=== PATIENT | female | born 1950 | race Caucasian/White ===

== ENCOUNTER 2017-03-23 08:30 | Outpatient (CLI) | payer MEDICARE ==
--- NOTE | 2017-03-23 12:14 | MRI ---
MRI OF THE BRAIN WITHOUT AND WITH CONTRAST: Comparison: 12-02-16, 01-06-16, 02-18-15, 01-16-15 History: Lung cancer with brain metastases, post-surgical resection. Technique: Multiplanar, multisequence MRI images were obtained in the brain without and with IV cont rast. FINDINGS: There are diffuse scattered hypodensities in the subcortical and periventricular white matter, likel y secondary to small vessel ischemic disease. There is a stable cavity in the left parietal lobe whe re a prior mass was resected. This is unchanged compared to the prior exam with a small amount of en hancement along the periphery representing vessels. No new area of enhancement are seen within the b rain. There is a stable large Virchow-Yossi space in the left basal ganglia. The expected flow voids are present. The corpus callosum, pituitary and craniocervical junction are unremarkable. The calvarium shows post-surgical change in the left parietal region but is otherwise unremarkable. There is mild mucosal thickening in the left maxillary sinus. IMPRESSION: 1. Stable post-surgical change in the left parietal lobe without evidence of recurrent or residual d isease at this time. POS: [facility]FFANIE
--- NOTE | 2017-03-23 12:56 | CT ---
CT CHEST WITH IV CONTRAST CT ABDOMEN WITH IV CONTRAST: Date: 03/23/17 HISTORY: Lung cancer with metastatic disease to the brain. The patient is status post surgery and chemo/radia tion. Exam requested for restaging. COMPARISON: 12/02/16. FINDINGS: Postop changes in the left hemithorax are redemonstrated. The left basilar scarring extending to the 1.2 cm subpleural nodule in the left lateral lung base is stable. No new lung nodules or masses are identified. No mediastinal or hilar lymphadenopathy is seen. No pleural or pericardial effusions ar e identified. The left breast nodule and prominent bilateral axillary lymph nodes are stable. Multiple cysts in the liver are also stable. The spleen, pancreas, right adrenal gland, and both kid neys are unremarkable. The patient is status post left adrenalectomy. No free air, free fluid, or lymphadenopathy seen in the abdomen. There are degenerative changes in t he spine. No osteolytic or osteoblastic lesions are identified. IMPRESSION: Stable exam since 12/02/16. POS: TIFFANIE
[2017-03-23] MEDS ORDERED: Iopamidol 370 76% 100 ML VIAL ONE (16:00)
[2017-03-23] MEDS ORDERED: Gadobenate Dimeglumine 529 MG/1 ML (20ML VIAL) ONE (16:03)
== END 2017-03-23 08:31 | disposition home or self-care (01) ==
LOC: CT 08:30
PROVIDERS: ATTEND Internal Medicine Hematology & Oncology
DX: C34.90 Malignant neoplasm of unspecified part of unspecified bronchus or lung (principal); C79.31 Secondary malignant neoplasm of brain; Z98.890 Other specified postprocedural states
CPT/HCPCS: 70553; 71260; 74160; A9579

== ENCOUNTER 2017-04-08 13:19 | Outpatient (CLI) | payer MEDICARE ==
--- NOTE | 2017-04-08 14:41 | MMO ---
LEFT BREAST DIAGNOSTIC MAMMOGRAM: Date: 04/08/17 HISTORY: Abnormality seen on CT. COMPARISON: Previous mammograms from 08/21/16, 06/11/15, 05/08/14, and 03/26/09. TECHNIQUE: Digital screening mammography is performed. Images are evaluated using computer-aided detection. FINDINGS: Left breast diagnostic mammogram performed. Images demonstrate stable mammographic appearance. Area of well circumscribed density in the left breast 3 o'clock position is stable. It has been present o n numerous previous mammograms and is not significantly changed. No other newly developed masses or lesions seen. IMPRESSION: BIRADS 2: Benign Finding(s) No further workup is indicated. POS: TIFFANIE
== END 2017-04-08 13:20 | disposition home or self-care (01) ==
LOC: MAMMO 13:19
PROVIDERS: ATTEND Internal Medicine Hematology & Oncology
DX: N63.20 Unspecified lump in the left breast, unspecified quadrant (principal)
CPT/HCPCS: G0206-LT

== ENCOUNTER 2017-07-07 09:05 | Outpatient (CLI) | payer MEDICARE ==
--- NOTE | 2017-07-07 12:08 | CT ---
CT CHEST WITH IV CONTRAST CT ABDOMEN WITH IV CONTRAST: HISTORY: Lung cancer with metastatic disease. Restaging. COMPARISON: 03/23/17 and 12/02/16. FINDINGS: Parenchymal scarring at the left lateral lung base is again demonstrated. The peripheral nodule at t he left lateral lung base, measuring 1.2 cm AP diameter at its base, is stable compared to the previo us exam. No new parenchymal nodules are apparent. There is calcification of the arterial structures . Enlarged bilateral axillary lymph nodes and a left breast nodule are stable. No pleural fluid. C ysts within the liver are unchanged. There are degenerative changes of the lumbar spine. The left a drenal gland is surgically absent. The pelvis was not imaged. IMPRESSION: 1. Stable CT appearance of the parenchymal scarring and nodule at the left lateral lung base. 2. Stable CT appearance of the left breast nodule and bilateral axillary adenopathy. 3. Atherosclerosis. POS: TIFFANIE
--- NOTE | 2017-07-07 12:47 | MRI ---
BRAIN MRI WITH AND WITHOUT CONTRAST: 07/07/2017 HISTORY: Lung cancer with intracranial metastatic disease. COMPARISON: 03/23/2017, 12/02/2016, 09/01/2016 TECHNIQUE: Multiplanar, multisequence MR imaging of the brain is obtained with and without contrast. FINDINGS: There is evidence of bilateral prior craniotomy. The diffusion-weighted imaging demonstrates no evidence for acute infarction. Axial gradient echo imaging is stable, demonstrating no evidence for intracranial hemorrhage. There is a post surgical cavity in the left parietal region, subjacent to the left craniotomy changes . The postoperative cavity in this region measures 1.6 cm in transverse dimension, stable. It is pr imarily flare hypointense with small, nodular areas of FLAIR hyperintensity and pre-contrast T1 hyper intensity along its lateral and superior margins. Signal characteristics of this are unchanged. On post contrast imaging, there is no definite enhancement at the postoperative site. Abnormal enhancement involving the brainstem or posterior fossa. There is a small postoperative cavity subjacent to the craniotomy changes on the right, which follow CSF signal intensity on all pulsed sequences, demonstrating no abnormal enhancement, unchanged when c ompared to prior imaging. No evidence for new/active intracranial metastatic disease. The imaged paranasal sinuses/mastoid air cells demonstrate no acute findings. There is severe degene rative change with associated fluid involving the left temporomandibular joint, stable. Arterial flow voids at the axial level of the skull base appear grossly unremarkable. There is exten sive periventricular deep and subcortical white matter T2/FLAIR hyperintensity, which may be related to small vessel disease and/or prior radiation therapy. IMPRESSION: Postoperative changes, as detailed above. No MR evidence of active intracranial metastatic disease. POS: TIFFANIE
[2017-07-07] MEDS ORDERED: Iopamidol 370 76% 100 ML VIAL ONE (15:41)
[2017-07-07] MEDS ORDERED: Gadobenate Dimeglumine 529 MG/1 ML (20ML VIAL) ONE (15:49)
== END 2017-07-07 09:06 | disposition home or self-care (01) ==
LOC: CT 09:05
PROVIDERS: ATTEND Internal Medicine Hematology & Oncology
DX: C34.32 Malignant neoplasm of lower lobe, left bronchus or lung (principal); C79.31 Secondary malignant neoplasm of brain; D70.9 Neutropenia, unspecified; T82.818A Embolism due to vascular prosthetic devices, implants and grafts, initial encounter; R11.2 Nausea with vomiting, unspecified; I70.90 Unspecified atherosclerosis
CPT/HCPCS: 70553; 71260; 74160; A9579

== ENCOUNTER 2017-10-20 08:42 | Outpatient (CLI) | payer MEDICARE ==
--- NOTE | 2017-10-20 11:29 | CT ---
CT CHEST WITH CONTRAST CT ABDOMEN WITH CONTRAST: Date: 10/20/17 HISTORY: C34.32, lung cancer. C79.32, brain mets. COMPARISON: CT chest and abdomen with contrast dated 04/06/18. FINDINGS: The bilateral axillary adenopathy is similar. The previously noted 2.3 cm long axis lymph node left a xilla is unchanged. Right axillary 17.0 mm short axis lymph node is unchanged. Small retropectoral ly mph nodes are also present, completely unchanged. No new axillary adenopathy. There are two separate nodules within the left breast. The left breast anterior nodule measures 13.0 mm in long axis, completely unchanged. Smaller deep nodule left breast measures 10.0 mm in long axis, also completely unchanged. No mediastinal adenopathy. There is mild thymic hyperplasia anterior mediastinum. Over the past year, the left basilar nodule has slowly decreased in size and continues decreased in s ize on today's examination. There is associated round atelectasis and peripheral pleural scarring. On today's examination, this measures approximately 1.0 cm in anterior posterior dimension, previously approximately 12.0 mm. Small intraparenchymal cyst right lung base. No new suspicious pulmonary nodul es. No pneumothorax. No effusion. Small posterior diaphragmatic hernia containing fat. The aorta has mild atherosclerotic calcifications. No dilatation of the pulmonary artery. Small intraperitoneal and periaortic lymph nodes, unchanged to slightly decreased in size. These are not pathologically enlarged. Small, fat-containing ventral hernia. Hepatic hypodensities are similar. No suspicious hyper or hypoenhancing hepatic mass. Gallbladder is unremarkable. Spleen is unchanged. No hydronephrosis. Moderate atherosclerotic calcifications of the aorta. No free intraperitoneal gas or fluid. Multiple facet arthrosis lower lumbar spine. No suspicious lytic or blastic lesions of the skeleton. IMPRESSION: 1. Completely unchanged examination of the bilateral axillary and right retropectoral lymph nodes, a s well as the breast nodules. 2. The left lateral lobe peripheral nodular density continues to be slightly decreased in size, most suggestive of scar. 3. No new suspicious mass, nodule, or osseous abnormality. No evidence for disease progression. POS: [facility]
--- NOTE | 2017-10-20 12:03 | MRI ---
MRI BRAIN WITH AND WITHOUT CONTRAST: Date: 10/20/17 Multiplanar, multisequential imaging of brain obtained. Postcontrast images were obtained with admini stration of 7 mL MultiHance IV. Half-dose MultiHance was administered due to patient's GFR which was recorded at 41. INDICATION: Malignant neoplasm of bronchus/lung unspecified. Secondary malignancy of brain. COMPARISON: MRI brain dated 07/07/17. FINDINGS: Ventricles remain normal size and position. Diffuse white matter hyperintensity on FLAIR sequence con sistent with chronic ischemic change or post radiation change. Postoperative defect posterior left parietal lobe and right temporal lobe region with surrounding gli osis and small operative cavity which was described previously. The defect in the left parietal lobe has nodular T1 hyperintensity on precontrast imaging which is stable from prior exam. The surrounding FLAIR signal is stable. No significant enhancement within the operative bed and no significant headley e from the prior study. No enhancement of the small postoperative cavity at the right temporal region . No other abnormal enhancement identified in the brain. Paranasal sinuses and mastoids appear clear. IMPRESSION: MRI findings are stable when compared to 07/07/17. No evidence of recurrent neoplasm. POS: TIFFANIE
[2017-10-20] MEDS ORDERED: Iopamidol 370 76% 100 ML VIAL ONE (15:00)
[2017-10-20] MEDS ORDERED: Gadobenate Dimeglumine 529 MG/1 ML (20ML VIAL) ONE (15:10)
== END 2017-10-20 08:43 | disposition home or self-care (01) ==
LOC: CT 08:42
PROVIDERS: ATTEND Internal Medicine Hematology & Oncology
DX: C34.91 Malignant neoplasm of unspecified part of right bronchus or lung (principal); C79.31 Secondary malignant neoplasm of brain
CPT/HCPCS: 70553; 71260; 74160; 82565; A9579

== ENCOUNTER 2018-03-08 10:32 | Outpatient (CLI) | payer MEDICARE ==
[~2018-03-08 10:32] MED LIST: Gadobenate Dimeglumine 529 MG/1 ML (20ML VIAL) ONE; Iopamidol 370 76% 100 ML VIAL ONE
== END 2018-03-08 10:33 | disposition home or self-care (01) ==
LOC: BICCT 10:32
PROVIDERS: ATTEND Internal Medicine Hematology & Oncology
DX: C79.31 Secondary malignant neoplasm of brain (principal); C34.90 Malignant neoplasm of unspecified part of unspecified bronchus or lung; T82.818A Embolism due to vascular prosthetic devices, implants and grafts, initial encounter; R11.2 Nausea with vomiting, unspecified; D70.9 Neutropenia, unspecified; Z98.890 Other specified postprocedural states
CPT/HCPCS: 70553; 71260; 74160

== ENCOUNTER 2018-04-28 12:23 | Outpatient (CLI) | payer MEDICARE | END 2018-04-28 12:24 | disposition home or self-care (01) | LOC: BICMAMMO 12:23 | PROVIDERS: ATTEND Internal Medicine Hematology & Oncology | DX: Z12.31 Encounter for screening mammogram for malignant neoplasm of breast (principal); Z80.3 Family history of malignant neoplasm of breast; Z85.118 Personal history of other malignant neoplasm of bronchus and lung | CPT/HCPCS: 77063; 77067 ==

== ENCOUNTER 2018-05-22 11:24 | Emergency (ER) | payer MEDICARE ==
--- NOTE | 2018-05-22 12:05 | RAD ---
UPRIGHT CHEST 1 VIEW: HISTORY: A 68-year-old female with a history of chest pain. COMPARISON: Chest CT presales consultant film dated 10/20/2017. Postop changes are noted in the left chest. Heart size is within normal limits. No confluent pneumo salvador, overt edema, or pleural effusion. IMPRESSION: No acute intrathoracic disease. Stable findings in the left chest. POS: [facility]
[2018-05-22 12:18] LABS: Bilirubin Negative (Negative); Blood, Urine Moderate (Negative); Clarity CLOUDY (Clear); Glucose, Urine (Dipstick) Negative (Negative); Leukocyte Large (Negative); Nitrite Positive (Negative); Protein, Urine (Dipstick) Trace mg/dL (Neg-Trace); Specific Gravity, Urine 1.016 (1.002-1.036); pH, Urine 5.5 (5.0-9.0)
[2018-05-22 12:21] LABS: Bacteria/HPF 4+ HPF (None Seen); Squamous Epithelial 0-3 HPF (0-3)
[2018-05-22 12:24] LABS: Hyaline Casts/LPF 0-3 HYALINE CAST LPF (0-3 Hyaline); Manual Microscopic Reviewed? No Path Casts Seen; Pathc Cast-AUWi Flag 3.34 (0-2.49)
[2018-05-22 12:46] LABS: #Basophils 0.1 thou/uL (0.0-0.2); #Lymphocytes 3.8 thou/uL (1.20-3.40); #Monocytes 1.8 thou/uL (0.11-0.59); #Neutrophils 11.6 thou/uL (1.40-6.50); %Basophils 0.7 % (0.0-1.0); %Eosinophils 0.1 % (0.0-10.0); %Lymphocytes 21.9 % (21.0-51.0); %Monocytes 10.4 % (0.0-10.0); %Neutrophils 66.9 % (42.0-75.0); Hemoglobin 12.2 g/dL (12.0-16.0); Mean Corpuscular HGB CONC 33.9 g/dL (32.0-36.0); Mean Corpuscular Hemoglobin 31.7 pg (27.0-31.0); Mean Corpuscular Volume 93.5 fL (78.0-98.0); Mean Platelet Volume 6.5 fL (7.4-10.4); Platelet Count 269 thou/uL (130-400); RBC Distribution Width 11.4 % (11.5-14.5); Red Blood Cell (RBC) Count 3.87 mill/uL (4.20-5.40); White Blood Cell (WBC) Count 17.3 thou/uL (4.8-10.8)
[2018-05-22] MEDS ORDERED: cefTRIAXone\\ROCEPHIN 1 GM VIAL ONE (12:51)
[2018-05-22 13:08] LABS: ALT (SGPT) 16 U/L (8-55); AST (SGOT) 12 U/L (5-34); Albumin 4.2 g/dL (3.4-4.8); Alkaline Phosphatase 112 U/L (40-150); Anion Gap 15 mmol/L (10-20); BUN (Urea Nitrogen) 16 mg/dL (9.8-20.1); Calc. Creatinine Clearance 0 mL/min (70-130); Calcium 9.2 mg/dL (7.8-10.44); Carbon Dioxide 24 mmol/L (23-31); Chloride 101 mmol/L (98-107); Estimated GFR-MDRD 43; Globulin 2.6 g/dL (2.4-3.5); Glucose 111 mg/dL (80-115); Potassium 3.8 mmol/L (3.5-5.1); Protein, Total 6.8 g/dL (6.0-8.3); Sodium 136 mmol/L (136-145)
[2018-05-22 13:13] LABS: CKMB 1.6 ng/mL (0-6.6); Troponin I Less than 0.010 ng/mL (< 0.028)
== END 2018-05-22 14:04 | disposition home or self-care (01) ==
LOC: ERS 11:24
DX: S20.212A Contusion of left front wall of thorax, initial encounter (principal); N39.0 Urinary tract infection, site not specified; F41.9 Anxiety disorder, unspecified; F32.9 Major depressive disorder, single episode, unspecified; Z79.899 Other long term (current) drug therapy; W19.XXXA Unspecified fall, initial encounter
CPT/HCPCS: 36415; 51701; 71045; 80053; 81003; 81015; 82553; 84484; 85025; 87077; 87086; 87186; 93005; 96365; A4353; J0696

== ENCOUNTER 2018-07-27 09:00 | Outpatient (CLI) | payer MEDICARE ==
--- NOTE | 2018-07-27 11:20 | CT ---
CT CHEST AND ABDOMEN PERFORMED WITH INTRAVENOUS CONTRAST ENHANCEMENT: HISTORY: The patient has a history of lung cancer with left upper lobe lobectomy, left adrenal gland removal, and a history of brain metastatic disease. COMPARISON: 03/08/2018 and 10/20/2017 FINDINGS: CHEST: There is some parenchymal scarring along the right major fissure. This is stable. Postoperative lobectomy changes of the left upper lobe are seen. Parenchymal scarring is again noted within the left lung base. There is some linear parenchymal change, which has two areas of nodulari ty associated with it. One is more of a pleural-based area, and it is stable in appearance. The sec ond area is a small nodular density, which is just immediately central to this area. It is slightly increased in size as compared to the prior examination, measuring 5 mm on the prior study, now measur ing 7 mm. It appears more prominent than both the previous exams. There has been an increase in the size of some of the adenopathy. In the right hilar region, an azyg os node has increased in size. It now measures 2 cm, as compared to the previous examination, when i t measured approximately 13 mm. A second node, located in the right infrahilar region, now measures 18 mm in size, as compared to the previous examination, when it measured 11 mm. There is also some i ncrease in size of some left hilar nodes. One node, on axial image 27, measures 12 mm, as compared t o 10 mm on the prior study. A node located on axial image 28 measures 9 mm on the current study, as compared to 8 mm. There are pretracheal lymph nodes present. I do not see that these have definitiv reyna changed in size. One area that is slightly equivocal to some of the subcarinal nodes may be subt ly increased. I obtained measurements of 6 mm, as compared to 5 mm on the prior examination. The bi lateral axillary lymphadenopathy appears stable. ABDOMEN: Hypodensities within the liver appear stable. The spleen, pancreas, and gallbladder region s all appear unremarkable. The right adrenal gland is normal in appearance. The left adrenal gland is not identified. The righ t and left kidneys are normal in size. There are periaortic and aortocaval nodes again identified. These appear stable. No significant mesenteric adenopathy. Fat-containing hernias are seen along the anterior abdominal wall and, just below the level of the um bilicus, is a hernia extending slightly to the right of midline, which has herniation of a small sylvie l loop, but no obstruction. This is only partially visualized on this study. Review of osseous structures shows no signs of any lytic or blastic bony changes. IMPRESSION: 1. Postoperative left upper lobe lobectomy change. There are some linear changes in the left base t hat have some nodular components associated with the linear density. The pleural-based area of nodul arity is felt to be stable in size. There has been a very subtle increase in size of a second area o f nodularity, which is just central to this, still along this area of linear scarring, increasing in size from approximately 5 mm to 7 mm. 2. Interval increase in bilateral hilar lymphadenopathy, as discussed above. 3. Stable axillary adenopathy. 4. Stable retropectoral nodes also seen. POS: [facility]
--- NOTE | 2018-07-27 12:04 | MRI ---
MRI BRAIN WITH AND WITHOUT CONTRAST: 07/27/2018 HISTORY: A 68-year-old female with lung cancer, metastatic to the brain, followup, C79.31 and C34.32. COMPARISON: 03/08/2018 TECHNIQUE: Multiple sequences obtained in axial, sagittal, and coronal planes; pre and post IV injection of gado linium-based contrast agent: Half-dose, 6 mL MultiHance (low GFR of 45). FINDINGS: Bilateral occipital parietal craniotomy changes. Focal region of small brain parenchymal defect with encephalomalacia and gliosis in the left posterior parietooccipital region again noted. Similar but smaller such region in the right posterolateral temporal cortex, near junction with occipital lobe. Diffuse severe ischemic demyelination (chronic ischemic white matter changes due to microvascular ath erosclerosis) throughout the periventricular, deep, and subcortical white matter. Diffuse parenchyma l volume loss. No obstructive hydrocephalus. No mass effect, midline shift, or extraaxial fluid col lection. No restricted diffusion to indicate any acute infarction. No evidence of new metastatic le sions. Regarding the surgical defect in the left parietooccipital region, there is nodular intrinsic T1 hype rintensity along a linear array, at the lateral aspect of the lesion, which should not be mistaken fo r contrast enhancement. This appearance is unchanged. There is no interval change overall. IMPRESSION: 1. No evidence of new or recurrent intracranial metastatic disease. 2. Bilateral small posterior cerebral post surgical defects. 3. Severe chronic white matter changes, which may be due to accelerated chronic ischemic small vesse l disease due to external beam radiation. 4. No interval change overall. ABBE Kelly POS: TIFFANIE
[2018-07-27] MEDS ORDERED: ISOVUE-370 76%-LOCM 1 ML ONE (13:30)
[2018-07-27] MEDS ORDERED: Gadobenate Dimeglumine 529 MG/1 ML (20ML VIAL) ONE (13:38)
== END 2018-07-27 09:01 | disposition home or self-care (01) ==
LOC: BICMRI 09:00
PROVIDERS: ATTEND Internal Medicine Hematology & Oncology
DX: C34.90 Malignant neoplasm of unspecified part of unspecified bronchus or lung (principal); C79.31 Secondary malignant neoplasm of brain; R59.0 Localized enlarged lymph nodes; I67.82 Cerebral ischemia; N39.0 Urinary tract infection, site not specified; Z90.2 Acquired absence of lung [part of]
CPT/HCPCS: 70553; 71260; 74160; 81001; 82565; 87086; A9577; Q9966

== ENCOUNTER 2018-09-21 10:30 | Outpatient (CLI) | payer MEDICARE ==
--- NOTE | 2018-09-21 12:57 | CT ---
FCT of the thorax with IV contrast INDICATION: History of lung cancer with metastatic disease Contrast: 60 cc of Isovue [address] the chest and abdomen dated July 27, 2018 FINDINGS: The postsurgical change of the left upper lobectomy is stable. The regions of peripheral interstitial fibrosis involving the lower lobes is stable. The areas of subpleural nodularity involving the left lower lobe is stable. The pulmonary nodule prev iously measuring 7 mm now measures 6 mm on image 37 series 2. The lymphadenopathy of the mediastinum, hilar, axillary and left retropectoral region is stable. The left breast lymph node is stable. Index node within the right axilla measures 1.5 cm. The largest lym ph node within the left hilar region measures 1.1 cm. The largest lymph node within the right hilar r egion measures 1 cm. The largest lymph node within the left axillary region measures 1.1 cm. Numerous hypodensities of the liver are stable. The left adrenal gland is surgically absent. Right adrenal glands normal appearing. There are healed anterolateral right fourth and fifth rib frac tures. No suspicious osteolytic or osteoblastic lesion is evident. There are healed left fourth throu gh sixth rib fractures. IMPRESSION: Stable examination of the chest. The small subcentimeter pulmonary nodules in the left lo wer lobe are largely stable. The largest pulmonary nodule present measuring 7 mm now measures 6.0 mm. The lymphadenopathy of the mediastinal, hilar, axillary, left retropectoral and left lateral breast are stable. Transcribed Date/Time: 09/21/2018 12:57 PM
== END 2018-09-21 10:31 | disposition home or self-care (01) ==
LOC: BICCT 10:30
PROVIDERS: ATTEND Internal Medicine Hematology & Oncology
DX: C34.90 Malignant neoplasm of unspecified part of unspecified bronchus or lung (principal); C79.31 Secondary malignant neoplasm of brain; R91.8 Other nonspecific abnormal finding of lung field; R59.0 Localized enlarged lymph nodes
CPT/HCPCS: 71260; 82565

== ENCOUNTER 2018-11-16 09:35 | Outpatient (CLI) | payer MEDICARE ==
--- NOTE | 2018-11-16 13:54 | MRI ---
MRI BRAIN WITH AND WITHOUT CONTRAST: 11/16/2018 HISTORY: A 68-year-old female with lung cancer, metastatic to the brain, followup, C79.31 and C34.32. COMPARISON: 07/17/2018 FINDINGS: Bilateral occipital parietal craniotomy changes. Focal region of small brain parenchymal defect with encephalomalacia and gliosis in the left posterior parietooccipital region again noted. Similar but smaller such region in the right posterolateral temporal cortex, near junction with occipital lobe. D iffuse severe ischemic demyelination (chronic ischemic white matter changes due to microvascular atherosclerosis) throughout the periventricular, deep, and subcortical white matter. Diffuse parenchy mal volume loss. No obstructive hydrocephalus. No mass effect, midline shift, or extraaxial fluid collection. No restricted diffusion to indicate any acute infarction. No evidence of new metastatic l esions. Regarding the surgical defect in the left parietooccipital region, there is nodular intrinsic T1 hyperintensity along a linear array, at the lateral aspect of the lesion, which should n ot be mistaken for contrast enhancement. This appearance is unchanged. There is no interval change overall. IMPRESSION: 1. No evidence of new or recurrent intracranial metastatic disease. 2. Bilateral small posterior cerebral post surgical defects. 3. Severe chronic white matter changes, which may be due to accelerated chronic ischemic small vessel disease due to external beam radiation. 4. No interval change overall.
== END 2018-11-16 09:36 | disposition home or self-care (01) ==
LOC: BICMRI 09:35
PROVIDERS: ATTEND Internal Medicine Hematology & Oncology
DX: C34.32 Malignant neoplasm of lower lobe, left bronchus or lung (principal); C79.31 Secondary malignant neoplasm of brain; R11.2 Nausea with vomiting, unspecified; D70.9 Neutropenia, unspecified; T82.818A Embolism due to vascular prosthetic devices, implants and grafts, initial encounter; Z98.890 Other specified postprocedural states; G45.9 Transient cerebral ischemic attack, unspecified
CPT/HCPCS: 70553; 82565

== ENCOUNTER 2019-01-11 08:59 | Outpatient (CLI) | payer MEDICARE ==
--- NOTE | 2019-01-11 10:38 | CT ---
CT the chest and abdomen with IV contrast INDICATION: History of lung cancer COMPARISON: CT of the chest dated 09/21/2018 July 27, 2018 FINDINGS: The subpleural pulmonary nodularity underlying the lateral aspect of the pleural surface of the left lower lobe is largely stable. One small pulmonary nodule has demonstrated mild interval growth. Previously this nodule on image 29 series 3 measured 4.5 mm now measures 5 mm. Additional pulmonary n odule left lower lobe previously measuring 6 mm is now measures 6.4 mm on image 36 of series 3. These subpleural scarring is stable. Scattered emphysema several stable. Postsurgical change of a lef t upper lobectomy is stable. The hilar lymphadenopathy is stable. The largest lymph node within the left hilar region measures 10 x 8 mm where previously it measured 11 x 9 mm on image 27 of series 2 on today's exam. Largest lymph node within the right hilar region measures 2 x 1 cm which is stable to the comparison examinat ion. There has been interval enlargement of the axillary lymph nodes and subpectoral lymph nodes on the right. One of the largest on the right axilla measures 17 mm where previously measured 15 mm. Thi s is seen on image 15 of series 2. The largest within the left axilla now measures 15 mm where previously measured 12 mm. Small hypodensities within the liver are stable. Left adrenal gland is surgically absent. Pancreas, r ight adrenal gland, kidneys and spleen appear within normal limits. The unopacified large and small bowel appear within normal limits. Small infraumbilical abdominal hernia containing unobstructed loop s of small bowel is stable. There is diffuse osteopenia. No suspicious osteolytic or osteoblastic lesion is identified. IMPRESSION: 1. Findings concerning for worsening metastatic disease. Slight interval enlargement of the small pul monary nodules in left lower lobe with bilateral enlargement of the axillary and prepectoral lymph nodes. Hilar lymph nodes and mediastinal lymph nodes are stable in size. Follow-up examination in 6-8 weeks may be helpful to evaluate stability versus progression. 2. Other chronic findings as above.
[2019-01-11] MEDS ORDERED: ISOVUE-370 76%-LOCM 1 ML ONE (13:42)
== END 2019-01-11 09:00 | disposition home or self-care (01) ==
LOC: BICCT 08:59
PROVIDERS: ATTEND Internal Medicine Hematology & Oncology
DX: C34.90 Malignant neoplasm of unspecified part of unspecified bronchus or lung (principal); J43.9 Emphysema, unspecified; R91.8 Other nonspecific abnormal finding of lung field; R59.0 Localized enlarged lymph nodes; K76.89 Other specified diseases of liver
CPT/HCPCS: 71260; 74160; 82565; Q9966

== ENCOUNTER 2019-01-17 08:52 | Outpatient (CLI) | payer MEDICARE ==
--- NOTE | 2019-01-17 11:37 | PET ---
EXAM: PET/CT HISTORY: Lung cancer TECHNIQUE: PET scanning with CT attenuation correction was performed from the base of the brain to the proximal thighs following the intravenous administration of 10.9. millicuries [id number]. COMPARISON: CT of the thorax with contrast dated January 11, 2019 and a PET/CT dated March 17, 2016 FINDINGS: Biodistribution:The biodistribution for the exam appears acceptable. Head and neck: There is appropriate background activity within the brain. In There is some nonhypermetabolic shotty appearing lymph nodes seen within the submandibular and submen kevin regions bilaterally. Peak SUV uptake associated with the submandibular lymph node on the right measures 1.87 with a mean value 1.64. There is also additional nonpathologically enlarged nonhypermet abolic lymph nodes seen near the carotid jugular space as well as within the posterior cervical region. Thorax: No hypermetabolic pulmonary lesion, pleural effusion or lymphadenopathy is present.The previ ously seen enlarging bilateral axillary and prepectoral lymph nodes demonstrate no hypermetabolic activity. The peak SUV uptake of one of the nodes within the right upper axillary region was 1.23 wit h a mean value of 0.83. No hypermetabolic hilar lymphadenopathy is evident. The left lower lobe pulmonary nodules are below PET resolution threshold. There is a 1 cm nodule within the outer aspect of the left breast which is stable to a CT dated September 21, 2018 without associated hypermetabolic uptake. Abdomen and pelvis: There is expected background activity within the GI and systems. No hypermetab olic mass, lymphadenopathy or ascites is present. Osseous structures and skin: No hypermetabolic skin or osseous lesion is identified. IMPRESSION: Indeterminate PET/CT 1. The enlarging bilateral axillary prepectoral lymph nodes demonstrate no associated hypermetabolic uptake. In light of the patient's history these do remain suspicious for worsening metastatic disease. Short-term CT follow-up is recommended to document stability or progression of disease. Ther e is a stable outer left breast nodule measuring 1 cm without associated hypermetabolic uptake. This may reflect a stably enlarged intermammillary left breast lymph node. 2. The subcentimeter pulmonary nodules in the left lower lobe demonstrate no hypermetabolic uptake; h owever, they are below PET resolution threshold. CT follow-up is recommended. 3. Mildly prominent but nonpathologically enlarged lymph nodes of the neck without associated hyperme tabolic uptake. CT soft tissue neck follow-up is recommended to document stability. These are new from the prior PET/CT in 2016..
== END 2019-01-17 08:53 | disposition home or self-care (01) ==
LOC: PET 08:52
PROVIDERS: ATTEND Internal Medicine Hematology & Oncology
DX: C34.90 Malignant neoplasm of unspecified part of unspecified bronchus or lung (principal); R59.0 Localized enlarged lymph nodes; R91.8 Other nonspecific abnormal finding of lung field
CPT/HCPCS: 78815; A9552

== ENCOUNTER 2019-02-09 17:37 | Emergency (ER) | payer MEDICARE ==
[2019-02-09 19:10] LABS: Hemoglobin 12.8 g/dL (12.0-16.0); Mean Corpuscular HGB CONC 34.1 g/dL (32.0-36.0); Mean Corpuscular Hemoglobin 32.7 pg (27.0-31.0); Mean Corpuscular Volume 95.9 fL (78.0-98.0); Mean Platelet Volume 6.7 fL (7.4-10.4); Platelet Count 203 thou/uL (130-400); RBC Distribution Width 11.8 % (11.5-14.5); Red Blood Cell (RBC) Count 3.91 mill/uL (4.20-5.40); White Blood Cell (WBC) Count 20.4 thou/uL (4.8-10.8)
[2019-02-09 19:28] LABS: ALT (SGPT) 18 U/L (8-55); AST (SGOT) 14 U/L (5-34); Albumin 4.5 g/dL (3.4-4.8); Alkaline Phosphatase 98 U/L (40-150); Anion Gap 14 mmol/L (10-20); BUN (Urea Nitrogen) 14 mg/dL (9.8-20.1); Bilirubin, Total 0.9 mg/dL (0.2-1.2); Calc. Creatinine Clearance 0 mL/min (70-130); Calcium 9.6 mg/dL (7.8-10.44); Carbon Dioxide 24 mmol/L (23-31); Chloride 103 mmol/L (98-107); Estimated GFR-MDRD 49; Globulin 2.1 g/dL (2.4-3.5); Glucose 98 mg/dL (80-115); Potassium 3.8 mmol/L (3.5-5.1); Protein, Total 6.6 g/dL (6.0-8.3); Sodium 137 mmol/L (136-145)
[2019-02-09 19:38] LABS: Band 8 % (5-11); Lymphocytes 23 % (21-51); MDiff Complete? YES; Monocytes 9 % (0-10); Neutrophil 47 % (42-75); Platelet Morphology Comment Appears Adequate; Polychromasia SLIGHT = 2-3 cells (100X) (0-2/hpf); Reactive Lymphocytes 12 % (0-10)
--- NOTE | 2019-02-09 20:47 | RAD ---
XR Chest 1 View Portable HISTORY: Chest pain COMPARISON: 05/22/2018 study FINDINGS: Heart size within normal limits. Surgical clips again noted within the mediastinum. The elena gs are clear of infiltrates. IMPRESSION: No active intrathoracic disease. Stable chest.
[2019-02-09 21:13] LABS: Bilirubin Negative (Negative); Blood, Urine Trace (Negative); Clarity Turbid (Clear); Glucose, Urine (Dipstick) Normal (Negative); Leukocyte 500 Leu/uL (Negative); Nitrite 1+ (Negative); Protein, Urine (Dipstick) Negative (Neg-Trace); Squamous Epithelial 0-3 HPF (0-3); Urobilinogen Normal mg/dL (Less than 2); WBC/HPF Greater than 50 HPF (0-3)
[2019-02-09 21:22] LABS: Bacteria/HPF 4+ HPF (None Seen)
[2019-02-09] MEDS ORDERED: Piperacillin/Tazobactam 4.5 GM VIAL ONE (21:25)
== END 2019-02-09 22:18 | disposition home or self-care (01) ==
LOC: ERS 17:37
DX: N39.0 Urinary tract infection, site not specified (principal); E78.5 Hyperlipidemia, unspecified; F41.9 Anxiety disorder, unspecified; F32.9 Major depressive disorder, single episode, unspecified; Z85.118 Personal history of other malignant neoplasm of bronchus and lung; Z85.841 Personal history of malignant neoplasm of brain; Z87.891 Personal history of nicotine dependence; Z79.899 Other long term (current) drug therapy
CPT/HCPCS: 36415; 71045; 80053; 81003; 81015; 83605; 83690; 84484; 85025; 87040; 87077; 87086; 87186; 93005; 96361; 96365; J2543

== ENCOUNTER 2019-04-11 09:02 | Outpatient (CLI) | payer MEDICARE ==
--- NOTE | 2019-04-11 10:32 | CT ---
EXAM: CT of the chest with contrast CT of the abdomen and pelvis with contrast HISTORY: Lung cancer with metastatic disease COMPARISON: CT chest 01/11/2019 and PET/CT 01/17/2019 TECHNIQUE: 1. Multiple contiguous axial images were obtained in a CT the chest with contrast. Coronal and sagitt al reformats were performed. 2. Multiple contiguous axial images were obtained and a CT of the abdomen and pelvis with contrast. C oronal and sagittal reformats were performed. FINDINGS: CT CHEST: HEART: Normal in size without focal cardiac abnormality MEDIASTINUM: No hilar or mediastinal lymphadenopathy. LUNGS: No focal infiltrates, nodules, or masses. Postsurgical changes are seen in the left lung. Scar ring and/or atelectasis is seen in the left lung base. PLEURAL SPACE: No pneumothorax or pleural effusion. CHEST WALL SOFT TISSUES: There are stable prominent bilateral axillary lymph nodes with prominent int ramammary lymph nodes in the left breast. CT ABDOMEN/PELVIS: ABDOMEN: LIVER: Scattered subcentimeter hypodensities in the liver are too small to definitely characterize bu t likely represent cysts. BILE DUCTS: Normal caliber. GALLBLADDER: No calcified gallstones. Normal caliber wall. PANCREAS: within normal limits. SPLEEN: within normal limits. ADRENALS: within normal limits. KIDNEYS: within normal limits. PELVIS: REPRODUCTIVE ORGANS: Status post hysterectomy. URETERS: within normal limits. BLADDER: within normal limits. PERITONEUM: No ascites or free air, no fluid collection. BOWEL: Normal caliber. Scattered diverticula in the colon. MESENTERY AND RETROPERITONEUM: No enlarged mesenteric or retroperitoneal lymph nodes. VESSELS: Atherosclerotic calcifications. ABDOMINAL WALL: Epigastric ventral hernia containing fat. 3.1 cm lower abdominal ventral hernia conta ining nonobstructed small bowel. OSSEOUS STRUCTURES: Degenerative changes in the spine. No suspicious osseous lesions identified. IMPRESSION: 1. Stable prominent bilateral axillary lymph nodes and left breast intramammary lymph nodes. 2. Hepatic cysts 3. Diverticulosis 4. Ventral hernias
== END 2019-04-11 09:03 | disposition home or self-care (01) ==
LOC: BICCT 09:02
PROVIDERS: ATTEND Internal Medicine Hematology & Oncology
DX: C34.32 Malignant neoplasm of lower lobe, left bronchus or lung (principal); C79.31 Secondary malignant neoplasm of brain; T82.818A Embolism due to vascular prosthetic devices, implants and grafts, initial encounter; R11.2 Nausea with vomiting, unspecified; D70.9 Neutropenia, unspecified; K43.9 Ventral hernia without obstruction or gangrene; K76.89 Other specified diseases of liver; K57.90 Diverticulosis of intestine, part unspecified, without perforation or abscess without bleeding
CPT/HCPCS: 71260; 74177; 82565

== ENCOUNTER 2019-05-08 14:56 | Outpatient (CLI) | payer MEDICARE ==
--- NOTE | 2019-05-08 15:20 | RAD ---
3 views of the right great toe: 05/08/2019 COMPARISON: None HISTORY: Right-sided great toe pain, right great toe injury FINDINGS: An obliquely oriented nondisplaced fracture is suspected involving the first proximal phala nx extending into the region of the first interphalangeal joint. Ankylosis is suspected at the level of the second proximal interphalangeal joint. There is erosive change at the base of the second proximal phalanx and the head of the second metatarsal is absent. This could be related to prior surgery, prior trauma, or inflammatory/septic arthropathy. IMPRESSION: Fracture of the first proximal phalanx. Chronic appearing findings involving the second d igit as detailed above. Clinical correlation is essential.
--- NOTE | 2019-05-08 15:21 | RAD ---
KUB: 05/08/2019 COMPARISON: 11/25/2015 HISTORY: Abdominal pain, recurrent urinary tract infection FINDINGS: The bowel gas pattern is nonobstructed. Calcifications in the pelvis suggest phleboliths. M ultilevel lower lumbar spine degenerative change. IMPRESSION: No acute findings.
== END 2019-05-08 14:57 | disposition home or self-care (01) ==
LOC: SCSRAD 14:56
PROVIDERS: ATTEND Family Medicine
DX: R10.9 Unspecified abdominal pain (principal); M79.674 Pain in right toe(s); S92.411A Displaced fracture of proximal phalanx of right great toe, initial encounter for closed fracture
CPT/HCPCS: 74018

== ENCOUNTER 2019-06-01 12:27 | Emergency (ER) | payer MEDICARE ==
--- NOTE | 2019-06-01 14:58 | RAD ---
Left hip 2 views: 06/01/2019 COMPARISON: None HISTORY: Fall, trauma, pain. FINDINGS: There is a nondisplaced fracture suspected at the level of the pubic bone on the left. No e vidence for dislocation of the left hip or fracture of the imaged proximal left femur. IMPRESSION: Findings suggesting an acute fracture of left pubic bone just lateral to the pubic symphy sis. CT examination of the pelvis would be beneficial to evaluate further.
[2019-06-01] MEDS ORDERED: HYDROcodone/Acetaminophen 10/325 mg Tablet ONE (16:41)
--- NOTE | 2019-06-01 17:47 | CT ---
CT PELVIS WITHOUT CONTRAST: 06/01/19 HISTORY: Left hip pain, frequent falls. FINDINGS: There are nondisplaced fractures involving the sacral ala bilaterally and the left pubic bone. There is sclerosis in the right sacral ala. No fracture or dislocation is seen in either hip joint. A right lower anterior abdominal wall hernia containing loops of bowel is present. There is colonic d iverticulosis. IMPRESSION: Bilateral sacral ala and left pubic bone fractures. POS: BERONICA
== END 2019-06-01 19:19 | disposition home or self-care (01) ==
LOC: ERS 12:27
DX: S32.502A Unspecified fracture of left pubis, initial encounter for closed fracture (principal); S32.10XA Unspecified fracture of sacrum, initial encounter for closed fracture; E78.5 Hyperlipidemia, unspecified; E78.00 Pure hypercholesterolemia, unspecified; F41.9 Anxiety disorder, unspecified; F32.9 Major depressive disorder, single episode, unspecified; Z87.891 Personal history of nicotine dependence; W01.0XXA Fall on same level from slipping, tripping and stumbling without subsequent striking against object, initial encounter
CPT/HCPCS: 72192

== ENCOUNTER 2019-06-23 14:26 | Outpatient (CLI) | payer MEDICARE ==
--- NOTE | 2019-06-23 15:14 | MMO ---
Bilateral MAMMO Bilat Screen [facility]. CLINICAL HISTORY: Patient is 69 years old and is seen for screening. The patient has the following family history of breast cancer: mother. The patient has a history of lung cancer at age 50. VIEWS: The views performed were: bilateral craniocaudal with tomosynthesis and bilateral mediolateral oblique with tomosynthesis. FILMS COMPARED: The present examination has been compared to prior imaging studies performed at [facility] on 06/11/2015, 08/21/2016, 04/08/2017 and 04/28/2018. This study has been interpreted with the assistance of computer-aided detection. MAMMOGRAM FINDINGS: There are scattered fibroglandular densities. There are stable nodules seen in both breasts. There are no suspicious masses, suspicious calcifications, or new areas of architectural distortion. IMPRESSION: THERE IS NO MAMMOGRAPHIC EVIDENCE OF MALIGNANCY. A ROUTINE FOLLOW-UP MAMMOGRAM IN 1 YEAR IS RECOMMENDED. THE RESULTS OF THIS EXAM WERE SENT TO THE PATIENT. ACR BI-RADS Category 2 - Benign finding MAMMOGRAPHY NOTE: 1. A negative mammogram report should not delay a biopsy if a dominant of clinically suspicious mass is present. 2. Approximately 10% to 15% of breast cancers are not detected by mammography. 3. Adenosis and dense breasts may obscure an underlying neoplasm. Reported by: EYAL HASSAN MD Electonically Signed: [id number]
== END 2019-06-23 14:27 | disposition home or self-care (01) ==
LOC: BICMAMMO 14:26
PROVIDERS: ATTEND Family Medicine
DX: Z12.31 Encounter for screening mammogram for malignant neoplasm of breast (principal); Z80.3 Family history of malignant neoplasm of breast; Z85.118 Personal history of other malignant neoplasm of bronchus and lung
CPT/HCPCS: 77063; 77067

== ENCOUNTER 2019-07-06 12:47 | Outpatient (CLI) | payer MEDICARE ==
[2019-07-06] MEDS ORDERED: Magnevist 469MG/ML 20 ML VIAL ONE (14:18)
--- NOTE | 2019-07-06 14:30 | MRI ---
Exam: Brain MRI with and without contrast HISTORY: Nausea. Vomiting. COMPARISON: 02/21/2019 FINDINGS: Gradient echo sequence: No hemorrhage Calvarium: Appropriate T1 marrow signal intensity Midline brain parenchyma: Unremarkable Cerebrum:No parenchymal mass, mass effect or midline shift. Stable atrophy. Stable confluent T2 and F LAIR white matter hyperintensities. Stable postsurgical changes involving the left and right occipital calvarium as well as bilateral occipital lobes. Ventricles: Stable configuration the ventricular system. Sinuses and mastoid air cells: Adequate aeration. Mild mucosal thickening of the left maxillary sinus , unchanged Diffusion: Central arterial flow is maintained. Absent restricted diffusion. Postcontrast images:Stable enhancement along lateral margin of the left occipital lobe surgical cavit y. No new areas of brain parenchymal enhancement. Stable volume loss in the right occipital lobe with associated gliosis. IMPRESSION: 1. No significant interval change. Stable enhancement, likely represent scar tissue. No new areas of enhancement are appreciated. 2. Stable confluent white matter hyperintensities, favored to be due to posttreatment change. Chronic small vessel ischemic changes may be superimposed.
== END 2019-07-06 12:48 | disposition home or self-care (01) ==
LOC: MRI 12:47
PROVIDERS: ATTEND Internal Medicine Hematology & Oncology
DX: C34.32 Malignant neoplasm of lower lobe, left bronchus or lung (principal); C79.31 Secondary malignant neoplasm of brain; R90.89 Other abnormal findings on diagnostic imaging of central nervous system
CPT/HCPCS: 70553; 82565; A9579

== ENCOUNTER 2019-08-14 14:51 | Outpatient (CLI) | payer MEDICARE ==
--- NOTE | 2019-08-14 16:00 | BD ---
DEXA BONE DENSITY STUDY: HISTORY: Postmenopausal. FINDINGS: Lumbar Spine: BMD (g/cm2) L1 0.722 T-Score: -2.4 L2 0.815 T-Score: -1.9 L3 0.827 T-Score: -2.3 L4 0.811 T-Score: -2.3 L1-L4 0.794 T-Score: -2.3 Femoral Neck: 0.510 T-Score: -3.1 Total Femur: 0.636 T-Score: -2.6 Impression: Osteopenia of the lumbar spine and osteoporosis of the left femoral neck. POS: TIFFANIE
== END 2019-08-14 14:52 | disposition home or self-care (01) ==
LOC: BICMAMMO 14:51
PROVIDERS: ATTEND Physician Assistant Surgical
DX: M81.0 Age-related osteoporosis without current pathological fracture (principal); M85.88 Other specified disorders of bone density and structure, other site
CPT/HCPCS: 77080

== ENCOUNTER 2019-10-11 08:40 | Outpatient (CLI) | payer MEDICARE ==
[2019-10-11] MEDS ORDERED: Iopamidol 370 76% 100 ML VIAL ONE (09:01)
--- NOTE | 2019-10-11 11:25 | CT ---
CT HEAD WITH IV CONTRAST: A noncontrast study was not performed. A with contrast only exam was performed as authorized by kendy rocha. INDICATION: Neoplasm. Malignant of bronchus/lung unspecified. Secondary neoplasm of brain. COMPARISON: Comparison is made to MRI of brain with and without contrast performed 07/06/2019 and 02/21/2019. Postoperative defect in the left parietooccipital region is again noted. Previous MRI showed some st able peripheral enhancement on the post-Gadolinium study. On today's CT exam, there is no evidence of enhancement at the operative site of the left parietoocci pital region. There is an operative defect in the parenchyma at this site which appears stable when compared to the MRI. Postoperative changes are also noted in the right posterior occipital parietal bone with a subtle are a indicating operative defect in the right occipital parietal region. There is no enhancement at thi s site. There is no evidence of mass or hemorrhage. Moderate white matter abnormality consistent with diffuse chronic ischemic white matter change and/or post radiation change appears stable. IMPRESSION: There are postoperative changes as described above. No abnormal enhancement identified. POS: SJAPRYL
--- NOTE | 2019-10-11 11:33 | CT ---
CT CHEST WITH IV CONTRAST CT ABDOMEN WITH IV CONTRAST CT PELVIS WITH IV CONTRAST: Date: 10/11/2019 HISTORY: 69-year-old female with malignant neoplasm of bronchus/lung, unspecified. Nausea with vomiting. Neutr openia, unspecified. Secondary malignant neoplasm of brain. COMPARISON: 04/11/2019. FINDINGS: The prominent lymph nodes in the axilla bilaterally and prominent intramammary lymph nodes in the lef t breast are again seen. No mediastinal or hilar mass or lymphadenopathy is noted. No pleural or aleena cardial effusions seen. Postop changes in the left lung and scarring in the left lung base again note d. No lung masses or nodules are seen. Small low density lesions in the liver, likely cysts, are stable. No calcified gallstones are noted. The spleen, pancreas, adrenal glands, and kidneys are normal. No free air or free fluid is seen in the abdomen or pelvis. A few prominent subcentimeter retroperito becky lymph nodes are stable. The small bowel loops are not abnormally dilated. There is colonic diverticulosis. There are vascular calcifications without evidence of aneurysmal dilatation of the thoracoabdominal a kitty. There are degenerative changes in the spine and Grade I anterolisthesis of L4 over L5. No osteo lytic or osteoblastic lesions are seen. There are old fractures of bilateral sacral ala and left pubi c bone. Fat-containing ventral hernias again noted. IMPRESSION: 1. Stable prominent bilateral axillary lymph nodes and left breast intramammary lymph nodes. 2. Hepatic cysts. 3. Colonic diverticulosis. 4. Old fractures of the sacrum and left pubic bone. 5. Fat-containing ventral hernias. POS: ARAVIND
== END 2019-10-11 08:41 | disposition home or self-care (01) ==
LOC: CT 08:40
PROVIDERS: ATTEND Internal Medicine Hematology & Oncology
DX: C79.31 Secondary malignant neoplasm of brain (principal); C34.90 Malignant neoplasm of unspecified part of unspecified bronchus or lung; K76.89 Other specified diseases of liver; K57.30 Diverticulosis of large intestine without perforation or abscess without bleeding; K43.9 Ventral hernia without obstruction or gangrene; Z98.890 Other specified postprocedural states; Z87.81 Personal history of (healed) traumatic fracture
CPT/HCPCS: 70460; 71260; 74177; 82565; Q9967

== ENCOUNTER 2020-02-16 08:43 | Outpatient (CLI) | payer MEDICARE ==
--- NOTE | 2020-02-16 10:37 | ULT ---
EXAM: US Abdominal CLINICAL HISTORY: Right flank pain. COMPARISON: None. FINDINGS: Pancreas: Suboptimal evaluation the pancreas due to bowel gas. IVC: Suboptimal evaluation the IVC due to bowel gas. Aorta: Partially visualized aorta is grossly unremarkable. Liver:Increased hepatic parenchymal echotexture may be due to hepatic steatosis or hepatocellular dis ease. Subsequent limited dilation for hepatic masses and intrahepatic biliary dilatation. 2 anechoic foci in the left hepatic lobe measuring 1.2 cm likely representing left hepatic lobe cyst. R ight hepatic lobe measures 12.9 cm. Gallbladder: No sonographic evidence of cholelithiasis, gallbladder wall thickening or pericholecysti c fluid. Lee's sign:Negative CBD: Suboptimal evaluation the common bile duct. Portal vein: Patent. Appropriate directional flow. Right kidney: Normal cortical echotexture. No hydronephrosis Right kidney measuring 4.2 x 8.3 x 4.4 cm in length. Left kidney: Normal cortical echotexture. No hydronephrosis. Left kidney measuring 4.1 x 7.9 x 4.1 cm in length. Spleen: Normal echotexture, measuring 9.3 cm IMPRESSION: 1. Left hepatic lobe cyst 2. No hydronephrosis 3. No sonographic evidence of cholelithiasis or cholecystitis 4. Heterogeneous echotexture of the liver likely due to hepatocellular disease. Correlation made with recent CT (10/11/2019) does not demonstrate hepatic steatosis. Clinical correlation is recommended.
== END 2020-02-16 08:44 | disposition home or self-care (01) ==
LOC: BICULT 08:43
PROVIDERS: ATTEND Family Medicine
DX: R10.9 Unspecified abdominal pain (principal); K76.89 Other specified diseases of liver; R93.2 Abnormal findings on diagnostic imaging of liver and biliary tract
CPT/HCPCS: 93975

== ENCOUNTER 2020-03-08 05:49 | Inpatient (IN) | payer MEDICARE, OTHER ==
[2020-03-08] MEDS ORDERED: Fentanyl 100 MCG/2 ML VIAL ONE (06:18)
[2020-03-08 06:49] LABS: Bilirubin Negative (Negative); Blood, Urine Negative (Negative); Clarity Clear (Clear); Glucose, Urine (Dipstick) Normal (Negative); Ketone, Urine Negative (Negative); Leukocyte Negative Leu/uL (Negative); Nitrite Negative (Negative); Protein, Urine (Dipstick) Negative (Neg-Trace); Specific Gravity, Urine 1.008 (1.002-1.036); Urobilinogen Normal mg/dL (Less than 2); pH, Urine 6.5 (5.0-9.0)
[2020-03-08 07:17] LABS: Hemoglobin 10.8 g/dL (12.0-16.0); Mean Corpuscular HGB CONC 32.7 g/dL (32.0-36.0); Mean Corpuscular Hemoglobin 32.4 pg (27.0-31.0); Mean Platelet Volume 6.3 fL (7.4-10.4); Platelet Count 352 thou/uL (130-400); Red Blood Cell (RBC) Count 3.33 mill/uL (4.20-5.40); Reflex for Review?? YES; White Blood Cell (WBC) Count 48.5 thou/uL (4.8-10.8)
[2020-03-08 07:36] LABS: Lymphocytes 73 % (21-51); MDiff Complete? YES; Monocytes 3 % (0-10); Neutrophil 24 % (42-75); Platelet Morphology Comment Appears Adequate
[2020-03-08 07:38] LABS: ALT (SGPT) 23 U/L (8-55); AST (SGOT) 32 U/L (5-34); Albumin 4.3 g/dL (3.4-4.8); Alkaline Phosphatase 111 U/L (40-110); Anion Gap 17 mmol/L (10-20); BUN (Urea Nitrogen) 16 mg/dL (9.8-20.1); Bilirubin, Total 0.4 mg/dL (0.2-1.2); Calc. Creatinine Clearance 0 mL/min (70-130); Calcium 8.9 mg/dL (7.8-10.44); Carbon Dioxide 20 mmol/L (23-31); Chloride 100 mmol/L (98-107); Estimated GFR-MDRD 31; Globulin 2.7 g/dL (2.4-3.5); Glucose 117 mg/dL (80-115); Potassium 5.5 mmol/L (3.5-5.1); Sodium 131 mmol/L (136-145)
--- NOTE | 2020-03-08 08:04 | RAD ---
LEFT HIP 2 VIEWS: Date: 03/08/2020 INDICATION: Fall with left-sided hip pain. COMPARISON: Prior exam dated 06/01/[address] of the chest/abdomen/pelvis dated 02/23/2020. FINDINGS: There is an incompletely healed left pubic body fracture. There are new mildly displaced left superio r pubic ramus and left inferior pubic ramus fractures. Proximal left femur is intact. There are numer ous barium-filled colonic diverticula present. No additional fracture is evident. IMPRESSION: 1. Acute left obturator ring fractures. 2. Incompletely healed left pubic body fracture without displacement. POS: BH
[2020-03-08] MEDS ORDERED: Morphine 4 MG/ML VIAL ONE (08:09)
--- NOTE | 2020-03-08 08:18 | CT ---
CT OF THE BRAIN WITHOUT CONTRAST: INDICATION: History of fall with head injury. COMPARISON: Prior exam dated 02/22/2020. FINDINGS: Severe chronic small-vessel white matter ischemic change is similar-appearing. Encephalomalacia invo lving the left parietal region is similar-appearing. Prominent prevascular space versus remote lacun ar infarct involving the inferior left globus pallidus is stable-appearing. No midline shift is evid ent. The postsurgical change involving the skull is similar-appearing. Mastoid air cells are clear. Paranasal sinuses are intact. IMPRESSION: No acute intracranial abnormality. POS:
--- NOTE | 2020-03-08 08:20 | CT ---
CT OF THE LUMBAR SPINE WITHOUT CONTRAST: INDICATION: History of fall with back pain. COMPARISON: Prior CT of the chest, abdomen, and pelvis dated 02/23/2020. FINDINGS: There has been interval development of a moderate wedge compression fracture involving T12 with some mild retropulsion of bone fragments from the posterior superior margin of T12 causing minimal to mild encroachment on the spinal canal. There is grade I anterolisthesis of L4 on L5 with advanced degene rative disk disease at L4-5. No additional acute fracture is evident. There is healed deformity inv olving the left sacral ala. There is mild degenerative change of both SI joints. There is scattered colonic diverticulosis. IMPRESSION: 1. Acute moderate wedge compression fracture of T12 with mild retropulsion of bone fragments of T12 inducing minimal to mild central canal narrowing at the superior margin of T12. 2. Healed fracture deformity involving the left sacral ala. This is stable to the prior exam. 3. Moderate lumbar spondylosis. POS: BH
[2020-03-08] MEDS ORDERED: SODIUM CHLORIDE IVPB SCH (08:30)
[2020-03-08] MEDS ORDERED: CALCIUM GLUCONATE IVPB SCH (08:30)
[2020-03-08] MEDS ORDERED: ADMIXTURE FEE IVPB SCH (08:30)
[2020-03-08 08:35] LABS: PTT 26.5 sec (22.9-36.1); Prothrombin Time 13.3 sec (12.0-14.7)
--- NOTE | 2020-03-08 08:39 | CT ---
CT OF THE PELVIS WITHOUT CONTRAST: INDICATION: History of fall with pelvic pain. COMPARISON: Prior CT of the chest, abdomen, and pelvis dated 02/23/2020. FINDINGS: There is a right lower quadrant abdominal wall hernia containing unobstructed loops of small bowel wh ich is stable. There is scattered colonic diverticulosis. The reproductive structures are surgicall y absent. No free fluid is evident. There is a minimally displaced left superior pubis ramus fracture. There is a small nondisplaced lef t inferior pubic ramus fracture. There is an incompletely healed left pubic body fracture that is no t appreciably displaced from the comparison exam. There is an interval acute component likely involv ing the inferior aspect of the left pubic body. The left obturator ring is intact. The acetabuli ap pear intact. There is a healed deformity involving the posterior left sacral ala. There is mild deg enerative change of both SI joints. IMPRESSION: 1. Interval development of a left obturator ring fracture that is minimally to mildly displaced. 2. Incompletely healed left pubic body fracture with an acute component now involving the inferior a spect of the left pubic body. 3. Healed left sacral ala fracture. 4. Colonic diverticulosis and right lower quadrant paraumbilical abdominal wall hernia with herniate d1 unobstructed loops of small bowel. POS: BH
--- NOTE | 2020-03-08 08:47 | RAD ---
XR Chest 1 View Portable History: Fall Comparison: Radiograph February 22, 2020 Findings: Heart size is similar. Moderate vascular calcifications. No new acute displaced rib fractur es. There is volume loss of the left hemithorax relative to the right, likely postsurgical in nature with left basilar scar. Impression: No acute intrathoracic abnormality.
[2020-03-08 09:18] LABS: Phosphorus 3.2 mg/dL (2.3-4.7)
[2020-03-08 09:20] LABS: Magnesium 1.7 mg/dL (1.6-2.6)
[2020-03-08 09:21] LABS: CK (CPK) 133 U/L (29-168)
--- NOTE | 2020-03-08 09:27 | CON ---
DATE OF CONSULTATION: This is Jamir Kerns PA-C dictating a report for Sukh Crawford MD. HISTORY OF PRESENT ILLNESS: The patient was at home with her this morning when she took a tumble. She sustained some pelvic fractures and a T12 compression fracture. Her main complaints are back pain and left pelvis hip pain. Hip x-ray was negative, but she did sustain a left superior pubic ramus fracture and also note she fell 4 months ago and broke the left pubic body that still appears to not be completely healed. The patient currently is in a fair amount of pain, again mostly in her spine and pelvis. She is able to move that left lower extremity . It is fairly painful, but again able to move. No loss of sensation down the lower extremities and both lower extremities currently are warm to the touch. She recalls her last pelvic fractures being significantly painful and now with a back fracture even a few more steps or she was gaining progress again. Her is her primary helper and caregiver and she would like him up at the hospital to visit and I think this is a reasonable request. She sees Dr. Salguero for her leukemia. PAST MEDICAL HISTORY: Positive for leukemia, dyslipidemia, and hypothyroidism. PAST SURGICAL HISTORY: Left upper lobectomy, MediPort placement. She has had [address] Marquez. She has also had adrenal gland removal, hysterectomy, abdominal surgery due to blockage. SOCIAL HISTORY: Resides independently with her . Quit smoking 18 years ago. No alcohol or drug products whatsoever. PSYCHIATRIC HISTORY: Some anxiety and depression. FAMILY HISTORY: For this visit is noncontributory. ALLERGIES: ATORVASTATIN. HOME MEDICATIONS: Which have not been reconciled yet is alprazolam, atorvastatin, bupropion, docusate, levothyroxine, magnesium citrate, pantoprazole, polyethylene glycol, sertraline, and she takes a cancer pill that is not currently on her list. REVIEW OF SYSTEMS: No chest pain,. No shortness of breath, but significant back pain and pelvic left hip pain. X-RAYS: CT definitely show a significant compression fracture at T12. As for the pelvis, she has left symphysis pubis fractures with continued nonhealing fractures from 4 months ago. LABORATORY DATA: White blood cell count 48.5, hemoglobin 10.8, hematocrit 33.3, and platelets 352. Chemistries; sodium is a little low at 131, potassium is a little high at 5.5, creatinine 1.67, and glucose 117. Urine negative. PHYSICAL EXAMINATION: VITAL SIGNS: Stable. ASSESSMENT: 1. Fall with ensuing fractures. 2. Left symphysis pubis fracture, stable. Also nonhealing previous fracture in the same area. 3. Compression fracture. PLAN: The patient will be admitted to Trauma. Neurosurgery will take a look at her back. As for the pelvic fractures, they are stable. She can move once Neurosurgery lets her move. Also, she can walk with PT/OT once cleared by Neurosurgery also. I am not sure if it is necessary, but Oncology may need to see the patient while she is here. It looks like trauma will be the admitting. Neurosurgery has been consulted. We will follow the patient throughout her hospital stay. Job ID: [id number]
[2020-03-08] MEDS ORDERED: Ondansetron PF 4 MG/2 ML Vial IVP PRN (11:46)
[2020-03-08] MEDS ORDERED: Dextrose 50% Abboject 50 ML SYRINGE SLOW IVP PRN (11:46)
[2020-03-08] MEDS ORDERED: Dextrose 5% in Water 1,000 ML IV PRN (11:46)
[2020-03-08] MEDS ORDERED: hydrALAZINE 20 MG/ML VIAL SLOW IVP PRN (11:46)
[2020-03-08] MEDS ORDERED: traMADol HCl 50 MG TAB PO PRN (13:00)
[2020-03-08 13:06] VITALS: BMI 25.0
[2020-03-08] MEDS: Morphine 2 MG/ML VIAL SLOW IVP PRN ×3 (13:18→21:13)
[2020-03-08] MEDS ORDERED: Acetaminophen 500 MG TAB PO SCH (13:30)
[2020-03-08] MEDS ORDERED: traMADol HCl 50 MG TAB PO SCH (14:00)
[2020-03-08] MEDS: Gabapentin 300 MG CAP PO SCH ×2 (14:36→21:11)
[2020-03-08] MEDS ORDERED: Sodium Chloride 0.9% 1,000 ML IV SCH (16:00)
[2020-03-08] MEDS ORDERED: Magnesium 2 GM/50 ML 2 GM in Premix Bag 1 BAG IVPB SCH (16:00)
[2020-03-08] MEDS: traMADol HCl 50 MG TAB PO SCH ×2 (17:39→23:13)
[2020-03-08] MEDS: Acetaminophen 500 MG TAB PO SCH ×2 (17:39→23:13)
[2020-03-08 18:35] LABS: SARS-CoV-2 MS2 Positive; SARS-CoV-2 N Gene Negative; SARS-CoV-2 S Gene Negative; SARS-CoV-2 by NAA Not Detected (NotDetected); SARS-CoV-2 orf1ab Negative
[2020-03-08] MEDS: Famotidine 20 MG TAB PO SCH (21:11)
--- NOTE | 2020-03-08 22:44 | CON ---
DATE OF CONSULTATION: 03/08/2020 CHIEF COMPLAINT: Fall, low back pain, left pelvic pain. HISTORY OF PRESENT ILLNESS: The patient is a 69-year-old female who presented to the emergency department status post fall this morning. She reports low back pain and left-sided pelvic pain. Her range of motion is somewhat limited due to pain , but she is able to move all extremities on command. She denies paresthesias in her lower extremities. No bowel or bladder incontinence. CT of the lumbar spine demonstrates T12 anterior and middle column fracture with mild retropulsion. Additionally, there is mild anterolisthesis of L4 on L5 with associated vacuum disk phenomenon. The patient also sustained pelvic fractures. REVIEW OF SYSTEMS: Low back pain and left pelvic pain. No paresthesias. Review of systems otherwise negative. PHYSICAL EXAMINATION: The patient is awake, alert, and appropriate. Her left lower extremity range of motion is limited secondary to pain; however, she exhibits 4+/5 strength throughout her bilateral lower extremities. Sensation to light touch is intact and equal throughout her bilateral lower extremities. IMPRESSION AND DIAGNOSES: Fall with pelvic fractures and T12 anterior middle column fracture with mild retropulsion. PLAN: Case has been discussed and imaging reviewed with Dr. Calderón. CT of the lumbar spine demonstrates T12 anterior middle column burst fracture with mild retropulsion. We will consult [facility] to fit the patient for a TLSO clamshell brace, which she will need to wear when out of bed and ambulating. Our team will arrange for serial x-rays to monitor for fracture progression on an outpatient basis at 6 and 12 weeks post injury. Please call for any neurologic changes or other concerns. This was a 50-minute initial visit, in which greater than 50% of the time was spent in review of records, review of imaging, evaluation, examination, and formulation of a plan. The remaining time was spent in counseling and coordination of care. Job ID: [id number] [facility]
--- NOTE | 2020-03-09 03:32 | PRG ---
DATE OF SERVICE: 03/08/2020 SUBJECTIVE: The patient was seen this evening during rounds. She was resting comfortably in bed and asleep with no signs of acute distress. Nursing reported no acute events. OBJECTIVE: VITAL SIGNS: Temperature 97.6, pulse 66, respirations 17, oxygen saturation 94% on room air, blood pressure 122/59. GENERAL: Well-appearing elderly female, lying in bed, asleep, with no signs of acute distress. PULMONARY: Equal chest rise and fall. No signs of acute respiratory distress. ASSESSMENT: 1. Status post mechanical fall x2. 2. Left obturator ring fracture and left pubic body fracture. 3. T12 compression fracture. 4. Acute kidney injury on chronic kidney disease. 5. History of CLL, lung cancer with mets to the brain, hypothyroidism, hyperlipidemia, and previous pelvic fractures, hyperkalemia. PLAN: Continue current diet, but add low-potassium diet as well. Recheck blood work in the morning. Start home medications as clinically indicated. The patient's injuries are nonoperative. She is pending placement to rehab facility. Job ID: [id number]
[2020-03-09] MEDS: Levothyroxine Sodium 100 MCG TAB PO SCH (05:00)
[2020-03-09] MEDS: traMADol HCl 50 MG TAB PO SCH ×4 (05:00→23:42)
[2020-03-09] MEDS: Acetaminophen 500 MG TAB PO SCH ×4 (05:01→23:43)
[2020-03-09 06:31] LABS: Anion Gap 13 mmol/L (10-20); BUN (Urea Nitrogen) 12 mg/dL (9.8-20.1); CK (CPK) 98 U/L (29-168); Calc. Creatinine Clearance 49 mL/min (70-130); Calcium 8.5 mg/dL (7.8-10.44); Carbon Dioxide 24 mmol/L (23-31); Chloride 100 mmol/L (98-107); Estimated GFR-MDRD 45; Glucose 95 mg/dL (80-115); Phosphorus 3.7 mg/dL (2.3-4.7); Potassium 4.7 mmol/L (3.5-5.1); Sodium 132 mmol/L (136-145)
[2020-03-09 06:38] LABS: Band 2 % (5-11); Hemoglobin 9.9 g/dL (12.0-16.0); Lymphocytes 71 % (21-51); MDiff Complete? YES; Mean Corpuscular HGB CONC 33.3 g/dL (32.0-36.0); Mean Corpuscular Hemoglobin 32.7 pg (27.0-31.0); Mean Corpuscular Volume 98.2 fL (78.0-98.0); Mean Platelet Volume 6.4 fL (7.4-10.4); Monocytes 2 % (0-10); Platelet Count 285 thou/uL (130-400); RBC Distribution Width 12.7 % (11.5-14.5); Red Blood Cell (RBC) Count 3.02 mill/uL (4.20-5.40); White Blood Cell (WBC) Count 33.2 thou/uL (4.8-10.8)
--- NOTE | 2020-03-09 07:14 | HP ---
REQUESTING PHYSICIAN: Dr. Richardson, ER physician. CONSULTS: 1. Orthopedic Surgery, Dr. Crawford. 2. Neurosurgery, Dr. Calderón. CHIEF COMPLAINT: Multiple falls, left hip pain. HISTORY OF PRESENT ILLNESS: This is a 69-year-old female with past medical history of chronic lymphocytic leukemia, lung cancer with metastasis to the brain, and hypothyroidism. The patient reports she was outside yesterday evening when she tripped and fell when she was checking the mail. The patient reports she did lay on the ground for a while until her found her. The patient also had another fall early this morning around 4:30 a.m. when she got up to use the restroom when she lost her balance falling on her buttocks. The patient had a pelvic fracture back in April 2019, which was nonoperative. The patient denies feeling weak or dizzy prior to falling. The patient reports since she was diagnosed with CLL, she has had some balance issues. The patient currently sees Dr. Salguero, but is not being treated for CLL. The patient denies any chest pain or shortness of breath. The patient denies hitting her head or losing consciousness. The patient only complains of left hip and pelvis pain currently. The patient was given 1 L of normal saline in the emergency room. The patient reports that she was recently admitted to the hospital for urosepsis and she has just completed a course of Bactrim antibiotics for this. The patient reports that she has been having frequent urinary tract infections, in which she sees a specialist. The patient denies any current urinary symptoms. She denies any fevers, chills, cough, or cold. The patient denies any numbness or tingling to extremities. REVIEW OF SYSTEMS: A 10-point review of systems is negative unless otherwise indicated in the above HPI. PAST MEDICAL HISTORY: 1. Hyperlipidemia. 2. Lung cancer with metastasis to the brain, previously treated with chemotherapy and radiation in 2014. 3. Chronic lymphocytic leukemia, not treated, but sees Dr. Salguero. PAST SURGICAL HISTORY: 1. Hysterectomy. 2. Brain tumors x2, removed in 2014. 3. Adrenal gland removal. 4. Lobectomy, left lung. 5. Abdominal surgery due to blockage in 2016. PSYCHIATRIC HISTORY: Anxiety and depression. SOCIAL HISTORY: The patient lives at home with her , was a previous smoker for 18 years, occasional social alcohol use, denies illicit drug use. ALLERGIES: ATORVASTATIN. MEDICATIONS: Unknown. PHYSICAL EXAMINATION: VITAL SIGNS: Blood pressure 141/70, pulse 65, respirations 20, SpO2 of 98% on room air, temperature 98.1. GENERAL: Well-appearing elderly female, awake, alert, in no distress. HEENT: Head is atraumatic and normocephalic. Trachea midline. No JVD. Mucous membranes are moist. Extraocular muscles intact. Pupils are equal bilateral. No cervical spine tenderness. Normal range of motion of neck. RESPIRATORY: Bilateral breath sounds clear. No wheezing, rales, or rhonchi. No respiratory distress. CARDIOVASCULAR: Regular rate, regular rhythm. No murmurs. No pedal edema. ABDOMEN: Soft, nontender, nondistended. BACK: Tenderness over the L and T-spine. EXTREMITIES: Neurovascularly intact x4. No focal deficits. Strength 5/5 in all extremities. Distal pulses intact. NEUROLOGIC: Cranial nerves intact. GCS 15. LABORATORY DATA: WBC 48.5, RBC 3.33, hemoglobin 10.8, hematocrit 33.0, platelets 352. Sodium 131, potassium 5.5, chloride 100, carbon dioxide 20, BUN 16, creatinine 1.67, estimated GFR 31, glucose 117, calcium 8.9, phosphorus 3.2, magnesium 1.7, total bilirubin 0.4, AST 32, ALT 23, alkaline phosphatase 111. CK 133, troponin less than 0.10. Albumin 4.3. Urinalysis; negative bacteria, negative nitrites. DIAGNOSTIC DATA: 1. 12-lead EKG, sinus rhythm with no ST-segment elevation and normal T-waves present. 2. Lumbar spine CT, impression, acute moderate wedge compression fracture of T12 with mild retropulsion of bone fragments of T12 including [id number]-[id number] central canal narrowing at the superior margin of T12. 3. Heel fracture deformity involving the left sacral ala. Moderate lumbar spondylosis. 4. Hip x-ray, impression, acute left obturator ring fractures. Incompletely healed left pubic bony fracture without displacement. 5. Pelvis CT, impression, interval development of a left obturator ring fracture that is minimally to mildly displaced. Incompletely healed left pubic body fracture with an acute component now involving the inferior aspect of the left pubic body. 6. Healed left sacral ala fracture. 7. Colonic diverticulosis and right lower quadrant paraumbilical abdominal wall hernia with herniated, obstructed loops of small bowel. 8. Brain CT, impression, no acute intracranial abnormalities. 9. Chest x-ray, impression, no acute intrathoracic abnormalities. IMPRESSION: 1. Status post mechanical fall. 2. T12 compression fracture with mild retropulsion. 3. Left obturator ring fracture, mildly displaced. 4. Incompletely healed left pubic body fracture and left inferior aspect of the left pubic body fracture. 5. Hyperkalemia, likely due to dehydration, no EKG changes. 6. Leukocytosis, due to CLL. 7. Hyponatremia. 8. Ktyog-do-lgnzgyb kidney disease stage 3. 9. History of chronic lymphocytic leukemia, lung cancer with mets to the brain treated in 2014, depression, anxiety, and hypothyroidism. PLAN: Admit the patient to the surgical floor. Orthopedic Surgery did evaluate the patient and her fractures are nonoperative. Neurosurgery's plan is to have the patient placed in a TLSO brace. The patient will be bedrest until this is placed. Once TLSO brace is placed, the patient can work with Physical and Occupational Therapy. We will hydrate the patient with normal saline and recheck labs in the morning. Pain control. Incentive spirometer every hour while awake. I did speak with Dr. Salguero's nurse practitioner about the patient who states her white count is expected to be high and there is no need for any treatment or for oncology to see the patient during this hospital visit. We will plan for inpatient rehab for continued physical and occupational therapy. The plan was discussed with the attending. The plan was discussed with the patient and her spouse, who agrees. Job ID: [id number]
[2020-03-09 07:58] LABS: Actual Bicarbonate (HCO3a) 23.5 mEq/L (22-28); Base Excess (BEa) -2.1 mEq/L (-2.0 to +3.0); CO2 Tension 43.9 mmHg (35.0-45.0); Carboxyhemoglobin (COHb) 0.3 gm% (0.0-3.0); O2 Tension (PaO2), arterial 76.5 mmHg (> 80.0); Potassium - ABG Lab 4.76 mmol/L (3.70-5.30); pH, Arterial 7.35 (7.35-7.45)
[2020-03-09 08:03] LABS: ALV-art Gradient 18.355 (0-20); Puncture Site RRA
[2020-03-09] MEDS: Gabapentin 300 MG CAP PO SCH ×3 (08:50→21:21)
[2020-03-09] MEDS: Famotidine 20 MG TAB PO SCH ×2 (08:50→21:20)
[2020-03-09] MEDS: buPROPion HCl 100 MG TAB PO SCH (08:50)
[2020-03-09] MEDS ORDERED: Atorvastatin Calcium 40 MG TAB PO SCH (09:00)
--- NOTE | 2020-03-09 13:29 | PRG ---
DATE OF SERVICE: 03/09/2020 Ms. Fregoso has a T12 superior endplate fracture. We will manage this with a TLSO clamshell brace. She is being fitted for this morning. She is neurologically intact with the plan going to inpatient rehab. We will arrange for upright AP and lateral thoracic and lumbar spine x-rays in 6 weeks. Likely duration of bracing will be 12 weeks. Job ID: [id number]
--- NOTE | 2020-03-09 17:33 | PRG ---
DATE OF SERVICE: 03/09/2020 Kanchan Fregoso has a history of CLL, history of metastatic lung cancer, has had falls, has a TLSO brace ordered for thoracic spine fractures. I have visited with the patient, examined her, and reviewed treatment plan, and agreed with treatment per MALOU Bourgeois, and Dr. Calderón. At this point, the patient will be discharged home in a day or 2 whenever her brace is stable and she is mobile. Job ID: [id number]
--- NOTE | 2020-03-09 18:08 | PRG ---
DATE OF SERVICE: 03/09/2020 SUBJECTIVE: The patient was seen during morning rounds. Awake, alert, in no distress. The patient is still awaiting application of her TLSO brace. The patient has not worked with Physical Therapy yet as she is pending placement of this brace. The patient's pain is well controlled at this time. The patient reports no overnight events. OBJECTIVE: VITAL SIGNS: Temperature 97.8, pulse 54, respirations 16, SpO2 of 96% on room air, blood pressure 110/55. GENERAL: Elderly female, awake, alert, in no distress. HEENT: Head is atraumatic and normocephalic. RESPIRATORY: Good inspiratory and expiratory effort. Respirations are even and nonlabored. Bilateral breath sounds clear. CARDIAC: Regular rate and regular rhythm. EXTREMITIES: Moves all extremities. Neurovascularly intact x4. LABORATORY DATA: WBC 33.2, RBC 3.02, hemoglobin 9.9, hematocrit 29.6, platelets 285. Sodium 132, potassium 4.7, chloride 100, carbon dioxide 24, BUN 12, creatinine 1.19, estimated GFR 45, glucose 95, calcium 8.5, phosphorus 3.7, magnesium 2.0. CK 98. DIAGNOSTICS: No new diagnostics to review today. IMPRESSION: 1. Status post mechanical fall x2. 2. T12 compression fracture with mild retropulsion. 3. Left obturator ring fracture, mildly displaced. 4. Incompletely healed left pubic body fracture and left inferior aspect of the left pubic body fracture. 5. Hyperkalemia, improved with IV fluids. 6. Leukocytosis due to chronic lymphocytic leukemia. 7. Hyponatremia due to chronic illness. 8. Thdoh-zb-qilwdfm kidney disease, improving, stage III. 9. History of chronic lymphocytic leukemia, lung cancer with metastasis to the brain treated in 2014, depression, anxiety, and hypothyroidism. PLAN: Continue supportive care and pain regimen. After the patient's TLSO brace is in place, she will work with Physical Therapy. Rehab screen has been placed. Continue incentive spirometer every hour while awake. Job ID: [id number]
[2020-03-09] MEDS: Heparin 5,000 UNITS/ML VIAL SC SCH (21:22)
[2020-03-09] MEDS: ATORVASTATIN PO SCH (21:33)
--- NOTE | 2020-03-10 01:21 | PRG ---
DATE OF SERVICE: 03/09/2020 SUBJECTIVE: The patient was seen this evening during rounds. She was sitting up in bed and comfortable with no signs of acute distress. She reported her pain is well controlled. The patient has not gotten up out of bed or work with Physical Therapy yet as her TLSO brace was not fitted until this afternoon. Subcu heparin has been started for DVT prophylaxis. OBJECTIVE: VITAL SIGNS: Temperature 97.8, pulse 66, respirations 18, oxygen saturation 100% on room air, and blood pressure 117/73. GENERAL: Well-appearing elderly female, sitting up in bed with no signs of acute distress. PULMONARY: Equal chest rise and fall. No signs of acute respiratory distress. Incentive spirometer is now reaching 2000. ASSESSMENT: 1. Status post fall x2. 2. Left obturator ring fracture and left pubic body fracture. 3. T12 compression wedge fracture. 4. Acute kidney injury on chronic kidney disease, improving. 5. History of CLL, lung cancer with metastasis to the brain, hypothyroidism, hyperlipidemia, and history of previous pelvic fractures. PLAN: Continue current diet and pain regimen. Physical and Occupational Therapy to work with the patient tomorrow. Start subcu heparin for DVT prophylaxis. The patient will need discharge to acute rehab facility. She will be ready for discharge after evaluation by Physical Therapy. Job ID: [id number]
[2020-03-10] MEDS: traMADol HCl 50 MG TAB PO SCH ×3 (05:35→18:12)
[2020-03-10] MEDS: Levothyroxine Sodium 100 MCG TAB PO SCH (05:35)
[2020-03-10] MEDS: Acetaminophen 500 MG TAB PO SCH ×2 (05:35→12:10)
[2020-03-10] MEDS: Cyclobenzaprine 10 MG TAB PO PRN (08:23)
[2020-03-10] MEDS: Gabapentin 300 MG CAP PO SCH ×3 (08:24→21:21)
[2020-03-10] MEDS: Famotidine 20 MG TAB PO SCH ×2 (08:24→21:21)
[2020-03-10] MEDS: buPROPion HCl 100 MG TAB PO SCH (08:24)
[2020-03-10] MEDS: Heparin 5,000 UNITS/ML VIAL SC SCH ×2 (08:24→21:21)
[2020-03-10] MEDS: ATORVASTATIN PO SCH (08:25)
[2020-03-10 11:21] LABS: Hemoglobin 9.3 g/dL (12.0-16.0); Lymphocytes 86 % (21-51); MDiff Complete? YES; Mean Corpuscular HGB CONC 33.5 g/dL (32.0-36.0); Mean Corpuscular Hemoglobin 32.8 pg (27.0-31.0); Mean Corpuscular Volume 98.1 fL (78.0-98.0); Mean Platelet Volume 6.2 fL (7.4-10.4); Monocytes 3 % (0-10); Neutrophil 11 % (42-75); Platelet Count 221 thou/uL (130-400); RBC Distribution Width 12.4 % (11.5-14.5); Red Blood Cell (RBC) Count 2.82 mill/uL (4.20-5.40); White Blood Cell (WBC) Count 23.2 thou/uL (4.8-10.8)
[2020-03-10 11:27] LABS: Anion Gap 12 mmol/L (10-20); BUN (Urea Nitrogen) 10 mg/dL (9.8-20.1); Calc. Creatinine Clearance 58 mL/min (70-130); Calcium 8.4 mg/dL (7.8-10.44); Carbon Dioxide 25 mmol/L (23-31); Chloride 96 mmol/L (98-107); Estimated GFR-MDRD 56; Glucose 100 mg/dL (80-115); Magnesium 1.5 mg/dL (1.6-2.6); Phosphorus 3.4 mg/dL (2.3-4.7); Potassium 4.4 mmol/L (3.5-5.1); Sodium 129 mmol/L (136-145)
[2020-03-10] MEDS ORDERED: Acetaminophen 325 MG TAB PO SCH (13:00)
--- NOTE | 2020-03-10 16:29 | PRG ---
DATE OF SERVICE: 03/10/2020 SUBJECTIVE: The patient was seen during morning rounds, awake, alert, in no distress. The patient does have her TLSO brace and was able to ambulate with physical therapy around the room earlier this morning. The patient does report that she had increased pain with ambulation, rating it 8/10, although lying in the bed without moving, she denies any pain. The patient is tolerating a diet. The patient's urinary output has been adequate for age and weight. OBJECTIVE: VITAL SIGNS: Temperature 97.6, pulse 67, respirations 16, SpO2 of 100% on room air, blood pressure 118/74. GENERAL: Elderly female, awake, alert, in no distress. HEENT: Head is atraumatic and normocephalic. Mucous membranes are moist. RESPIRATORY: Breath sounds are clear, no respiratory distress. CARDIAC: Regular rate, regular rhythm. EXTREMITIES: Moves all extremities, neurovascularly intact x4. NEUROLOGIC: GCS 15. LABORATORY DATA: WBC 23.2, RBC 2.82, hemoglobin 9.3, hematocrit 27.6, and platelets 221. Sodium 129, potassium 4.4, chloride 96, BUN 10, creatinine 0.99, estimated GFR 56, glucose 100, calcium 8.4, phosphorus 3.4, and magnesium 1.5. DIAGNOSTIC STUDIES: There are no new diagnostics to review today. IMPRESSION: 1. Status post mechanical fall x2. 2. T12 compression fracture with mild retropulsion, treated with TLSO brace. 3. Left obturator ring fracture, mildly displaced, treated nonoperatively. 4. Incompletely-healed left pubic body fracture and left inferior aspect of the left pubic body fracture, nonoperative. 5. Hyperkalemia, resolved with hydration. 6. Leukocytosis due to chronic lymphocytic leukemia. 7. Hyponatremia due to chronic illness, worsening. 8. Hypomagnesium. 9. Acute on chronic kidney disease stage 3, improving. 10. History of chronic lymphocytic leukemia, lung cancer with metastasis to the brain, treated in 2014; depression; anxiety; and hypothyroidism. PLAN: Correct electrolytes. 1 L free water restriction daily for hyponatremia, the patient may have unlimited Gatorade. TLSO brace when out of bed. Continue physical and occupational therapy. Optimize pain management. We will add Tylenol 3 for breakthrough pain and for working with Physical Therapy. The plan has been discussed with the patient who agrees. The patient is pending placement for continued rehab. Job ID: [id number]
[2020-03-10] MEDS ORDERED: Acetaminophen 500 MG TAB PO SCH (18:00)
[2020-03-10] MEDS: Acetaminophen 325 MG TAB PO SCH (18:13)
[2020-03-11] MEDS: traMADol HCl 50 MG TAB PO SCH ×4 (00:06→18:02)
[2020-03-11] MEDS: Acetaminophen 325 MG TAB PO SCH ×4 (00:08→18:02)
[2020-03-11] MEDS: Cyclobenzaprine 10 MG TAB PO PRN (00:11)
[2020-03-11] MEDS: Levothyroxine Sodium 100 MCG TAB PO SCH (05:09)
[2020-03-11 05:45] LABS: Anion Gap 12 mmol/L (10-20); BUN (Urea Nitrogen) 11 mg/dL (9.8-20.1); Calc. Creatinine Clearance 58 mL/min (70-130); Calcium 8.3 mg/dL (7.8-10.44); Carbon Dioxide 25 mmol/L (23-31); Chloride 96 mmol/L (98-107); Estimated GFR-MDRD 56; Glucose 86 mg/dL (80-115); Magnesium 2.1 mg/dL (1.6-2.6); Phosphorus 3.6 mg/dL (2.3-4.7); Potassium 4.5 mmol/L (3.5-5.1); Sodium 128 mmol/L (136-145)
[2020-03-11] MEDS: buPROPion HCl 100 MG TAB PO SCH (08:37)
[2020-03-11] MEDS: Gabapentin 300 MG CAP PO SCH ×3 (08:37→20:35)
[2020-03-11] MEDS: Heparin 5,000 UNITS/ML VIAL SC SCH ×2 (08:38→20:35)
[2020-03-11] MEDS: Famotidine 20 MG TAB PO SCH ×2 (08:38→20:35)
[2020-03-11] MEDS: Acetaminophen/Codeine 30-300mg Tablet PO PRN ×2 (12:32→20:33)
--- NOTE | 2020-03-11 16:23 | PRG ---
DATE OF SERVICE: 03/10/2020 SUBJECTIVE: The patient was seen this evening during rounds. She was lying in bed, resting comfortably and asleep with no signs of acute distress. Nursing reported no acute events. OBJECTIVE: VITAL SIGNS: Temperature 97.6, pulse 68, respirations 16, oxygen saturation 96% on room air, blood pressure 121/71. GENERAL: Well-appearing elderly female, lying in bed, resting comfortably in sleep, with no signs of acute distress. PULMONARY: Equal chest rise and fall. No signs of acute respiratory distress. ASSESSMENT: 1. Status post mechanical fall. 2. Left-sided pelvic fractures. 3. T12 compression fracture. 4. Acute kidney injury on chronic kidney disease, resolved. 5. History of chronic lymphocytic leukemia, lung cancer with metastasis to the brain, hypothyroidism, and hyperlipidemia. PLAN: Continue current diet and pain regimen. Continue physical and occupational therapy. Continue free water restriction. The patient is pending discharge to rehab facility. She is ready for discharge at this time. Job ID: [id number]
--- NOTE | 2020-03-11 19:16 | PRG ---
DATE OF SERVICE: 03/11/2020 SUBJECTIVE: Patient was seen with Dr. Gardner during morning rounds on the surgical floor. Patient is hospital day #3, status post having two separate falls. Patient sustained a nonoperative pelvic fractures and a T12 compression fracture with mild retropulsion in which it is treated with a TLSO brace. Patient is currently sitting up on the side of the bed, working with Physical Therapy with a well-fitting TLSO brace in place. Patient's pain is better controlled today with physical therapy. Patient's sodium did worsen from yesterday and currently 128. Patient continues to tolerate a regular diet and voices no complaints or concerns at this time. Urinary output is adequate for patient's age and weight. PHYSICAL EXAMINATION: VITAL SIGNS: Temperature 97.6, pulse 70, respirations 18, blood pressure 118/79, and SpO2 of 96% on room air. GENERAL: Well-appearing elderly female, awake, alert, in no distress. RESPIRATORY: Good inspiratory and expiratory effort, no distress. EXTREMITIES: Moves all extremities, neurovascularly intact x4. NEUROLOGIC: GCS 15. Strength 5/5 in all extremities. LABORATORY DATA: WBC 23.2, RBC 2.82, hemoglobin 9.3, hematocrit 27.6, and platelets 221. Sodium is 128, potassium 4.5, chloride 96, BUN 11, creatinine 0.99, estimated GFR 56, glucose 86, calcium 8.3, phosphorus 3.6, and magnesium 2.1. DIAGNOSTICS: There are no new diagnostics to review today. IMPRESSION: 1. Status post mechanical fall x2. 2. T12 compression fracture with mild retropulsion, treated with TLSO brace. 3. Left obturator ring fracture, mildly displaced, treated nonoperatively. 4. Incompletely healed left pubic body fracture and left inferior aspect of the left pubic body fracture, nonoperative. 5. Hyperkalemia, resolved. 6. Leukocytosis due to chronic lymphocytic leukemia. 7. Hyponatremia. 8. Hypomagnesemia, resolved. 9. Acute on chronic kidney disease, improved. 10. History of chronic lymphocytic leukemia; lung cancer with metastasis to the brain, treated in 2014; depression; anxiety; and hypothyroidism. PLAN: Continue pain management and supportive care. Continue regular diet. We will place patient on a complete free-water restriction. Patient can have unlimited Gatorade or juice or anything, except water. Patient has been instructed to salt her food. Continue physical and occupational therapy. Patient is pending placement to inpatient rehab pending insurance authorization. Patient is ready for discharge at this time. There has been a delay due to getting patient fit for her TLSO brace. Again, the patient was examined by Dr. Gardner during morning rounds. The plan was discussed with the patient, who agrees. Job ID: [id number]
[2020-03-11] MEDS: ATORVASTATIN PO SCH (21:32)
[2020-03-12] MEDS: Acetaminophen 325 MG TAB PO SCH ×5 (00:44→23:37)
[2020-03-12] MEDS: traMADol HCl 50 MG TAB PO SCH ×5 (00:45→23:37)
--- NOTE | 2020-03-12 01:01 | PRG ---
DATE OF SERVICE: 03/11/2020 SUBJECTIVE: The patient was seen this evening during rounds. She was lying in bed, resting comfortably, and asleep with no signs of acute distress. Nursing reported no acute events. OBJECTIVE: VITAL SIGNS: Temperature 97.6, pulse 65, respirations 16, oxygen saturation 95% on room air, blood pressure 121/61. GENERAL: Well-appearing elderly female, lying in bed, resting comfortably and asleep with no signs of acute distress. PULMONARY: Equal chest rise and fall. No signs of acute respiratory distress. ASSESSMENT: 1. Status post fall from standing. 2. Left obturator ring and pubic body fractures. 3. T12 compression fracture. 4. Acute hyponatremia, worsening. 5. Acute kidney injury on chronic kidney disease, improved. 6. History of chronic lymphocytic leukemia, lung cancer with METS, bone cancer, hypothyroidism, hyperlipidemia, previous pelvic fractures. PLAN: Continue current diet and pain regimen. Continue physical and occupational therapy. Continue complete free water restriction. Patient is pending placement at rehab facility. Job ID: [id number]
[2020-03-12 05:39] LABS: Anion Gap 12 mmol/L (10-20); BUN (Urea Nitrogen) 13 mg/dL (9.8-20.1); Calc. Creatinine Clearance 57 mL/min (70-130); Calcium 8.6 mg/dL (7.8-10.44); Carbon Dioxide 26 mmol/L (23-31); Chloride 93 mmol/L (98-107); Estimated GFR-MDRD 54; Glucose 91 mg/dL (80-115); Magnesium 1.7 mg/dL (1.6-2.6); Phosphorus 3.9 mg/dL (2.3-4.7); Potassium 4.2 mmol/L (3.5-5.1); Sodium 127 mmol/L (136-145)
[2020-03-12] MEDS: Levothyroxine Sodium 100 MCG TAB PO SCH (05:59)
[2020-03-12] MEDS: Famotidine 20 MG TAB PO SCH ×2 (08:06→19:57)
[2020-03-12] MEDS: Gabapentin 300 MG CAP PO SCH ×3 (08:06→19:57)
[2020-03-12] MEDS: Heparin 5,000 UNITS/ML VIAL SC SCH ×2 (08:07→19:58)
[2020-03-12] MEDS: buPROPion HCl 100 MG TAB PO SCH (08:07)
[2020-03-12] MEDS ORDERED: Magnesium Sulfate 3 GM in Sodium Chloride 0.9% 100 ML IVPB SCH (10:00)
[2020-03-12 12:32] LABS: Neutrophil 24 % (42-75)
--- NOTE | 2020-03-12 14:33 | PRG ---
DATE OF SERVICE: The patient was seen with Dr. Kulwinder Gardner. SUBJECTIVE: A 69-year-old female status post fall with multiple injuries, nonoperative pelvic fracture, T12 compression fracture in TLSO brace, SARA on CKD, acute on chronic hyponatremia. Pain is better controlled today. Sodium is downtrending again. She is on free water restriction. She has no other complaints. Family is at the bedside. PHYSICAL EXAMINATION: VITAL SIGNS: Temperature is 97.6, blood pressure 118/80, heart rate is 71, breathing 16 times per minute, 95% on room air. GENERAL: A 69-year-old female, sitting up in bed, in no acute distress. HEENT: Normocephalic, atraumatic. Trachea is midline. RESPIRATORY: Equal rise and fall. No respiratory distress. CARDIOVASCULAR: Regular rate and rhythm. Strong pulses. ABDOMEN: Soft. MUSCULOSKELETAL: Moves her extremities well. PSYCH: Normal mood and affect. NEUROLOGIC: Alert and oriented to person, place, time and event. DIAGNOSTIC CRITERIA: Today, a white blood cell count of 23.2. Sodium is 127, potassium 4.2, chloride is 93, CO2 is 26, creatinine is 1.02, calcium is 8.6, phos is 3.9, magnesium is 1.7. ASSESSMENT: 1. Status post mechanical fall x2. 2. T12 compression fracture with TLSO brace. 3. Left obturator ring fracture, mildly displaced and nonoperative treatment. 4. Left pubic body fracture and left inferior aspect of the left pubic body fracture, nonoperatively. 5. Hyperkalemia that is resolved. 6. Hypomagnesemia, currently being replaced. 7. Acute on chronic kidney disease, grossly improved. 8. Acute hyponatremia. 9. Chronic lymphocytic leukemia, lung cancers with metastases. PLAN: 1. We will start salt tabs 1 g twice daily. 2. Continue pain regimen. 3. Continue to work with PT. 4. Recheck CBC and BMP in the morning. 5. Continue all other supportive care. 6. Hope to be discharged later today. The patient is tolerating a diet. If clinically continues to improve, plan is to go to rehab. 7. Answered questions of the patient and the patient's family at the bedside. Job ID: [id number]
[2020-03-12] MEDS: Acetaminophen/Codeine 30-300mg Tablet PO PRN (14:38)
[2020-03-12] MEDS: ATORVASTATIN PO SCH (19:57)
[2020-03-12] MEDS: Sodium Chloride 1 GM TAB PO SCH (19:57)
[2020-03-12] MEDS: Cyclobenzaprine 10 MG TAB PO PRN (22:50)
--- NOTE | 2020-03-13 00:35 | PRG ---
DATE OF SERVICE: 03/13/2020 SUBJECTIVE: This is a 69-year-old female, status post fall with multiple injuries. Upon my evaluation this evening, the patient is asleep. Nursing reported no complaints or concerns. OBJECTIVE: VITAL SIGNS: The patient is afebrile. Vital signs have been reviewed and are as documented in the electronic medical record. GENERAL: The patient is resting in bed, appears comfortable. LUNGS: Breathing is nonlabored. The remainder of the physical exam is grossly unchanged from previous documentation. LABORATORY FINDINGS: No new laboratory findings. ASSESSMENT: As documented in the progress note earlier today, dated 03/12/2020. PLAN: Continue supportive care as ordered. Follow up morning labs to trend sodium levels as the patient was started on salt tabs earlier today. Job ID: [id number]
[2020-03-13 07:40] LABS: Phosphorus 3.7 mg/dL (2.3-4.7)
[2020-03-13 07:45] LABS: Anion Gap 15 mmol/L (10-20); BUN (Urea Nitrogen) 14 mg/dL (9.8-20.1); Calc. Creatinine Clearance 57 mL/min (70-130); Calcium 8.6 mg/dL (7.8-10.44); Carbon Dioxide 23 mmol/L (23-31); Chloride 95 mmol/L (98-107); Estimated GFR-MDRD 54; Glucose 87 mg/dL (80-115); Magnesium 1.9 mg/dL (1.6-2.6); Potassium 4.3 mmol/L (3.5-5.1); Sodium 129 mmol/L (136-145)
[2020-03-13] MEDS: Gabapentin 300 MG CAP PO SCH ×3 (08:18→20:00)
[2020-03-13] MEDS: Heparin 5,000 UNITS/ML VIAL SC SCH ×2 (08:18→20:00)
[2020-03-13] MEDS: buPROPion HCl 100 MG TAB PO SCH (08:18)
[2020-03-13] MEDS: Sodium Chloride 1 GM TAB PO SCH ×2 (08:18→20:00)
[2020-03-13] MEDS: Acetaminophen 325 MG TAB PO SCH ×4 (09:17→23:15)
[2020-03-13] MEDS: traMADol HCl 50 MG TAB PO SCH ×4 (09:18→23:15)
[2020-03-13] MEDS: Levothyroxine Sodium 100 MCG TAB PO SCH (09:18)
[2020-03-13 09:55] LABS: Hemoglobin 9.6 g/dL (12.0-16.0); Mean Corpuscular HGB CONC 32.8 g/dL (32.0-36.0); Mean Corpuscular Volume 97.6 fL (78.0-98.0); Mean Platelet Volume 7.1 fL (7.4-10.4); Platelet Count 199 thou/uL (130-400); RBC Distribution Width 12.7 % (11.5-14.5); Red Blood Cell (RBC) Count 3.01 mill/uL (4.20-5.40); White Blood Cell (WBC) Count 30.1 thou/uL (4.8-10.8)
[2020-03-13 10:35] LABS: Eosinophils 1 % (0-10); Lymphocytes 73 % (21-51); MDiff Complete? YES; Monocytes 5 % (0-10); Neutrophil 21 % (42-75); Platelet Morphology Comment Appears Adequate; Polychromasia SLIGHT = 2-3 cells (100X) (0-2/hpf)
--- NOTE | 2020-03-13 15:46 | PRG ---
DATE OF SERVICE: 03/13/2020 SUBJECTIVE: The patient was seen during morning rounds. Awake, alert, in moderate distress due to pain. The patient is currently standing in her room in a well-fitting TLSO brace. The patient continues to have some moderate pain with ambulation. The patient has been on a free water restriction for hyponatremia. The patient continues to tolerate a regular diet. The patient voices no other complaints at this time. OBJECTIVE: VITAL SIGNS: Temperature 97.6, pulse 82, respirations 14, SpO2 of 96% on room air, blood pressure 126/73. GENERAL: Well-appearing, middle-age female, in no distress. HEENT: Head is normocephalic, atraumatic. RESPIRATORY: Good inspiratory and expiratory effort, no respiratory distress. CARDIOVASCULAR: Regular rate, regular rhythm. ABDOMEN: Soft. EXTREMITIES: Moves all extremities, neurovascularly intact x4, TLSO brace in place. NEUROLOGIC: No focal deficits. LABORATORY DATA: WBC 30.1, RBC 3.01, hemoglobin 9.6, hematocrit 29.4. Sodium 129, potassium 4.3, chloride 95, carbon dioxide 23, BUN 14, creatinine 1.02, estimated GFR 54, glucose 87, calcium 8.6, phosphorus 3.7, magnesium 1.9. DIAGNOSTIC DATA: No new diagnostics to review today. ASSESSMENT: 1. Status post mechanical fall x2. 2. T12 compression fracture, treated with TLSO brace. 3. Left obturator ring fracture, mildly displaced and nonoperative treatment. 4. Left pubic body fracture and left inferior aspect of the left pubic body fracture, nonoperative. 5. Acute on chronic kidney disease, improved. 6. Acute hyponatremia, improving. 7. Chronic lymphocytic leukemia and lung cancer with metastasis to brain. PLAN: 1. Continue salt tablets twice a day. 2. Continue pain regimen and supportive care. 3. Continue PT and OT. Insurance has denied the patient being admitted to inpatient rehab. We will request a peer to peer. We will add Ensure 3 times a day. The plan was discussed with the attending who agrees. Job ID: [id number]
[2020-03-13] MEDS: Cyclobenzaprine 10 MG TAB PO PRN (19:59)
[2020-03-13] MEDS: ATORVASTATIN PO SCH (20:01)
[2020-03-14] MEDS: Acetaminophen 325 MG TAB PO SCH ×3 (05:05→18:22)
[2020-03-14] MEDS: traMADol HCl 50 MG TAB PO SCH ×3 (05:06→18:22)
[2020-03-14] MEDS: Levothyroxine Sodium 100 MCG TAB PO SCH (05:06)
[2020-03-14] MEDS: Cyclobenzaprine 10 MG TAB PO PRN ×2 (08:11→19:31)
[2020-03-14] MEDS: Acetaminophen/Codeine 30-300mg Tablet PO PRN ×2 (08:12→19:31)
[2020-03-14] MEDS: Gabapentin 300 MG CAP PO SCH ×2 (08:12→16:04)
[2020-03-14] MEDS: buPROPion HCl 100 MG TAB PO SCH (08:12)
[2020-03-14] MEDS: Sodium Chloride 1 GM TAB PO SCH (08:12)
[2020-03-14] MEDS: Heparin 5,000 UNITS/ML VIAL SC SCH (08:13)
[2020-03-14] MEDS ORDERED: Polyethylene Glycol 3350 17 GM Packet PO SCH (09:00)
[2020-03-14] MEDS ORDERED: Senokot S 8.6-50 MG TAB PO SCH (09:00)
--- NOTE | 2020-03-14 17:44 | DIS ---
DATE OF ADMISSION: 03/08/2020 DATE OF DISCHARGE: 03/14/2020 DISCHARGE ATTENDING: Dr. Gardner. CONSULTS: 1. Orthopedic Surgery, Dr. Crawford. 2. Neurosurgery, Dr. Calderón. PROCEDURES: None. PRIMARY DIAGNOSES: 1. Mechanical fall, T12 compression fracture with mild retropulsion treated nonoperatively; left obturator ring fracture mildly displaced, treated nonoperatively; incompletely healed left pubic body fracture and left inferior aspect of the left pubic body fracture, treated nonoperatively. 2. Leukocytosis secondary to chronic lymphocytic leukemia. 3. Hyponatremia, acute on chronic kidney disease stage 3, improved. SECONDARY DIAGNOSES: Chronic lymphocytic leukemia, lung cancer with metastasis to the brain treated in 2014, depression, anxiety, and hypothyroidism. DISCHARGE MEDICATIONS: 1. Acetaminophen 650 mg p.o. q.6 hours. 2. Tylenol No.3 one tablet p.o. q.6 hours p.r.n. 3. Bupropion 100 mg p.o. daily. 4. Flexeril 5 mg p.o. three times a day p.r.n. muscle spasms. 5. Gabapentin 300 mg p.o. three times a day. 6. Heparin subcu b.i.d. 7. Synthroid 100 mcg p.o. daily. 8. Protonix 40 p.o. daily. 9. MiraLAX p.o. daily. 10. Senokot 2 tabs p.o. b.i.d. 11. Sertraline 100 mg p.o. daily. 12. Tramadol 100 mg q.6 hours p.r.n. pain. 13. Alprazolam 1 mg p.o. p.r.n. 14. Inulin one tab p.o. daily. 15. Zolpidem tartrate one tablet p.o. q.p.m. 5 mg. No discontinued medications. HISTORY OF PRESENT ILLNESS AND HOSPITAL COURSE: This is a 69 year old female, who presented to the emergency room after tripping and falling while she was outside checking the mail. The patient reports she did lay on the ground for a while until her found her. The patient also had another fall the following morning around 4:30 a.m., when she got up to use the restroom and lost her balance falling onto her buttocks. The patient did have a pelvic fracture back in April 2019, which was nonoperative. The patient denies feeling weak or dizzy prior to falling. The patient has had balance issues since diagnosed with CLL. The patient denied any chest pain or shortness of breath. The patient did not hit her head or lose consciousness. Her only complaint with left hip pain and pelvis pain. The patient had recently been admitted to the hospital for urosepsis and completed a course of antibiotics. The patient reports having frequent urinary tract infections. The patient denies any fevers or chills on arrival. The patient was admitted for pain control. The patient was fitted in a TLSO brace and was able to work with Physical and Occupational Therapy. Multiple adjustments were made to control the patient's pain. Eventually, her pain was somewhat controlled. The patient did have an acute on chronic kidney injury, in which, it resolved. The patient also had some hyponatremia that was resolved with free water restriction and salt tablets. The patient did have an extended length of stay due to insurance authorization, initially denying acceptance. A [id number] was obtained and approval was provided. On the day of discharge, the patient was evaluated and her exam was unremarkable including cardiopulmonary and GI exam. The patient's vital signs were stable and she had no complaints. The patient was deemed stable for discharge to inpatient rehab for continued physical and occupational therapy. DISPOSITION: Stable. DISCHARGE INSTRUCTIONS: LOCATION: Inpatient rehab. DIET: Regular diet as tolerated. ACTIVITY: Orthopedic limitations, weightbearing as tolerated. The patient is to use a walker. FOLLOWUP: 1. Follow up with Dr. Calderón in 6 to 12 weeks with repeat x-rays. 2. Follow up with primary care physician. 3. No need to follow up with Trauma Services. Please call for any questions. Job ID: [id number] [facility]
[2020-03-14 23:25] VITALS: BP 120/75; TEMP 97.8
== END 2020-03-14 20:30 | DRG 552 ==
LOC: ERS 05:49 → SURG A 08:11 → OBSVTOIN 08:11
PROVIDERS: ADMIT Specialist; ATTEND Specialist
DX: S22.080A Wedge compression fracture of T11-T12 vertebra, initial encounter for closed fracture (principal); S32.89XA Fracture of other parts of pelvis, initial encounter for closed fracture; C91.10 Chronic lymphocytic leukemia of B-cell type not having achieved remission; E87.1 Hypo-osmolality and hyponatremia; N17.9 Acute kidney failure, unspecified; S32.592G Other specified fracture of left pubis, subsequent encounter for fracture with delayed healing; Z20.828 Contact with and (suspected) exposure to other viral communicable diseases; W01.0XXA Fall on same level from slipping, tripping and stumbling without subsequent striking against object, initial encounter; N18.3 Chronic kidney disease, stage 3 (moderate); F41.9 Anxiety disorder, unspecified; F32.9 Major depressive disorder, single episode, unspecified; E03.9 Hypothyroidism, unspecified; E78.5 Hyperlipidemia, unspecified; E87.5 Hyperkalemia; E86.0 Dehydration; E83.42 Hypomagnesemia; Z90.710 Acquired absence of both cervix and uterus; Z85.118 Personal history of other malignant neoplasm of bronchus and lung; Z85.841 Personal history of malignant neoplasm of brain; Z88.8 Allergy status to other drugs, medicaments and biological substances; Z90.49 Acquired absence of other specified parts of digestive tract; Z79.890 Hormone replacement therapy
CPT/HCPCS: 36415; 70450; 71045; 72131; 72192; 80048; 80053; 81003; 82550; 82805; 83735; 84100; 84484; 85025; 85610; 85730; 87635; 93005; 96361; 96365; 96372; 96375; 96376; G0378; G0390; J0610; J1644; J2270; J2405; J3010; J3475; J3490; L0639; U0003

== ENCOUNTER 2020-04-10 08:05 | Outpatient (CLI) | payer MEDICARE ==
--- NOTE | 2020-04-10 10:43 | MRI ---
Exam: Brain MRI with and without contrast HISTORY: Metastatic lung cancer. COMPARISON: 07/06/2019 FINDINGS: Gradient echo sequence: No hemorrhage Calvarium: Stable postoperative changes. Enhancement of the underlying dura, felt to be postsurgical in nature. Midline brain parenchyma: Unremarkable Cerebrum:Confluent T2 and FLAIR white matter hyperintensities, unchanged. Ventricles: No evidence of hydrocephalus. Sinuses and mastoid air cells: Adequate aeration Diffusion: Central arterial flow is maintained. Absent restricted diffusion. Postcontrast images:Stable intrinsic hyperintensity involving the left occipital lobe. No pathologic enhancement of the brain parenchyma. No evidence of new foci of brain parenchymal enhancement. IMPRESSION: 1. Stable postsurgical changes involving the calvarium. Stable dural enhancement. 2. Stable intrinsic T1 hyperintensity involving the left occipital lobe. There are no new areas of br ain parenchymal enhancement. 3. Stable confluent white matter hyperintensities favored to be posttreatment change. Superimposed ch ronic small vessel ischemic changes are also likely present. Transcribed Date/Time: 04/10/2020 10:51 AM
--- NOTE | 2020-04-10 11:59 | CT ---
CT CHEST AND ABDOMEN AND PELVIS WITH IV CONTRAST: HISTORY: Malignant neoplasm of bronchus/lung, unspecified. Nausea with vomiting. Neutropenia, unspecified, s econdary malignant neoplasm of brain. Stage IV [id number] lung carcinoma status post lobectomy, squamous cell carcinoma. COMPARISON: 02/23/2020. FINDINGS: Bilateral axillary lymphadenopathy and nodules in the left breast, likely intramammary lymph nodes ar e stable. The 8 mm left infrahilar lymph node is stable. There are subcentimeter medial lymph nodes measuring up to 7 mm. No pleural or pericardial effusions are seen. There are postop changes in the left lung. There is mild atelectatic change versus scarring in the r ight lower lobe which is also seen on the previous study. A 7 mm solid-appearing nodule is seen in t he posterior aspect of the right middle lobe which is new (image 33 series 5). A tiny peripheral nod ule is seen in the right upper lobe measuring about 2 mm (image 30, series 5) which is also not defin itely seen on the previous study. Tiny calcified nodules in the lower lung stone are again seen. The hepatic cysts are stable. No calcified gallstones are seen. The spleen, pancreas, adrenal gland s, and right kidney are normal. A tiny low-density lesion in the left renal cortex is likely a cyst. No free air or free fluid is seen in the abdomen or pelvis. A 15 mm portocaval lymph node and 16 mm periportal lymph node are stable. The 9 mm aortocaval and left paraaortic lymph nodes are stable. The small bowel loops are not abnormally dilated. There is colonic diverticulosis and diverticulitis . The patient is post hysterectomy. Right paraumbilical ventral hernia containing nondilated nonobs tructed loops of small bowel is stable. Bilaterally enlarged iliac lymph node and inguinal lymph nod es are stable. There are vascular calcifications without evidence of aneurysmal dilatation of the abdominal aorta. Wedge compression fracture of T12 with mild retropulsion of bone fragments of T12 are stable since 04/2020. There are old left pelvic and sacral alae fractures. There is incomplete interval healing of the left obturator ring fracture since 03/08/2020. There is stable grade I anterolisthesis of L4 o yuniel L5. No osteolytic or osteoblastic lesions are seen. IMPRESSION: 1. Stable lymphadenopathy in the chest, axillae, abdomen, and pelvis. 2. Stable hepatic cyst. 3. Stable postop changes in the left lung. 4. A couple of new small right lung nodules measuring up to 7 mm. These are indeterminate and shoul d be followed up with CT scan in 3 months. POS: ARAVIND
== END 2020-04-10 08:06 | disposition home or self-care (01) ==
LOC: SCSMRI 08:05
PROVIDERS: ATTEND Internal Medicine Hematology & Oncology
DX: C34.90 Malignant neoplasm of unspecified part of unspecified bronchus or lung (principal); C79.31 Secondary malignant neoplasm of brain; K76.89 Other specified diseases of liver; R59.0 Localized enlarged lymph nodes; R91.8 Other nonspecific abnormal finding of lung field; R93.89 Abnormal findings on diagnostic imaging of other specified body structures; Z90.2 Acquired absence of lung [part of]; Z98.890 Other specified postprocedural states
CPT/HCPCS: 36415; 70553; 71260; 74177; 80053; 82565

== ENCOUNTER 2020-04-19 13:02 | Outpatient (CLI) | payer MEDICARE ==
--- NOTE | 2020-04-19 13:52 | RAD ---
XR Thoracic Spine 3 V STANDARD: 04/19/2020 12:00 AM 70-year-old female with T12 compression fracture COMPARISON: Prior CT the chest, abdomen and pelvis dated April 10, 2020 FINDINGS: Fracture: The severe wedge compression fracture of T12 is stable. No additional acute fractures evide nt. Alignment: There is kyphotic angulation at the T12 compression fracture site. There is very mild levo scoliosis of the lower thoracic spine. Degenerative Change: There is mild multilevel thoracic spondylosis Prevertebral soft tissues: There are vascular calcifications within the left hilar region. Visualized lungs are clear. There are scattered vascular calcifications. IMPRESSION: Stable severe T12 wedge compression fracture.
== END 2020-04-19 13:03 | disposition home or self-care (01) ==
LOC: SCSRAD 13:02
PROVIDERS: ATTEND Surgery
DX: S22.080A Wedge compression fracture of T11-T12 vertebra, initial encounter for closed fracture (principal)
CPT/HCPCS: 72072

== ENCOUNTER 2020-06-25 13:54 | Outpatient (CLI) | payer MEDICARE ==
--- NOTE | 2020-06-25 14:58 | MMO ---
Bilateral MAMMO Bilat Screen [id number]. CLINICAL HISTORY: Patient is 70 years old and is seen for screening. The patient has the following family history of breast cancer: mother. The patient has a history of lung cancer at age 50. VIEWS: The views performed were: bilateral craniocaudal with tomosynthesis and bilateral mediolateral oblique with tomosynthesis. FILMS COMPARED: The present examination has been compared to prior imaging studies performed at [facility] on 08/21/2016, 04/08/2017, 04/28/2018 and 06/23/2019. This study has been interpreted with the assistance of computer-aided detection. MAMMOGRAM FINDINGS: There are scattered fibroglandular densities. There are stable intramammary lymph nodes seen in both breasts. There are no suspicious masses, suspicious calcifications, or new areas of architectural distortion. IMPRESSION: THERE IS NO MAMMOGRAPHIC EVIDENCE OF MALIGNANCY. A ROUTINE FOLLOW-UP MAMMOGRAM IN 1 YEAR IS RECOMMENDED. THE RESULTS OF THIS EXAM WERE SENT TO THE PATIENT. ACR BI-RADS Category 2 - Benign finding MAMMOGRAPHY NOTE: 1. A negative mammogram report should not delay a biopsy if a dominant of clinically suspicious mass is present. 2. Approximately 10% to 15% of breast cancers are not detected by mammography. 3. Adenosis and dense breasts may obscure an underlying neoplasm. Reported by: RUMA MORALES MD Electonically Signed: [id number]
== END 2020-06-25 13:55 | disposition home or self-care (01) ==
LOC: BICMAMMO 13:54
PROVIDERS: ATTEND Family Medicine
DX: Z12.31 Encounter for screening mammogram for malignant neoplasm of breast (principal); Z80.3 Family history of malignant neoplasm of breast; Z85.118 Personal history of other malignant neoplasm of bronchus and lung
CPT/HCPCS: 77063; 77067

== ENCOUNTER 2020-12-05 11:51 | Day surgery (SDC) | payer MEDICARE ==
[2020-12-05] MEDS ORDERED: Acetaminophen 500 MG TAB PO SCH (12:15)
[2020-12-05] MEDS ORDERED: diphenhydrAMINE 25 MG CAP PO SCH (12:15)
[2020-12-05 15:00] VITALS: TEMP 98.3
[2020-12-05 16:32] VITALS: BP 128/59
== END 2020-12-05 16:33 | disposition home or self-care (01) ==
LOC: ONC/OP 11:51
PROVIDERS: ATTEND Nurse Practitioner Acute Care
PROC: 30233N1 Transfusion of Nonautologous Red Blood Cells into Peripheral Vein, Percutaneous Approach (ICD-10-PCS; principal; 2020-12-05)
DX: D64.9 Anemia, unspecified (principal); D69.6 Thrombocytopenia, unspecified; Z88.8 Allergy status to other drugs, medicaments and biological substances
CPT/HCPCS: 36430; 86850; 86900; 86901; P9016; Q0163

== ENCOUNTER 2020-12-24 09:10 | Day surgery (SDC) | payer MEDICARE ==
[2020-12-24] MEDS ORDERED: diphenhydrAMINE 25 MG CAP PO SCH (09:30)
[2020-12-24] MEDS ORDERED: Acetaminophen 500 MG TAB PO SCH (09:30)
[2020-12-24 14:10] VITALS: BP 122/60; TEMP 97.6
== END 2020-12-24 14:07 | disposition home or self-care (01) ==
LOC: ONC/OP 09:10
PROVIDERS: ATTEND Internal Medicine Hematology & Oncology
PROC: 30233N1 Transfusion of Nonautologous Red Blood Cells into Peripheral Vein, Percutaneous Approach (ICD-10-PCS; principal; 2020-12-24)
DX: D64.9 Anemia, unspecified (principal); D69.6 Thrombocytopenia, unspecified; Z88.8 Allergy status to other drugs, medicaments and biological substances
CPT/HCPCS: 36430; 86850; 86900; 86901; P9016

== ENCOUNTER 2021-04-02 08:36 | Outpatient (CLI) | payer MEDICARE ==
[2021-04-02] MEDS ORDERED: Iopamidol 370 76% 100 ML VIAL ONE (11:04)
== END 2021-04-02 08:37 | disposition home or self-care (01) ==
LOC: CT 08:36
PROVIDERS: ATTEND Internal Medicine Hematology & Oncology
DX: C79.31 Secondary malignant neoplasm of brain (principal); C34.32 Malignant neoplasm of lower lobe, left bronchus or lung; I67.82 Cerebral ischemia; H74.8X3 Other specified disorders of middle ear and mastoid, bilateral; G93.89 Other specified disorders of brain; Z98.890 Other specified postprocedural states; D80.1 Nonfamilial hypogammaglobulinemia; M80.08XS Age-related osteoporosis with current pathological fracture, vertebra(e), sequela
CPT/HCPCS: 36415; 70553; 71260; 74177; 80053; 82565; Q9967

== ENCOUNTER 2021-07-10 14:08 | Outpatient (CLI) | payer MEDICARE | END 2021-07-10 14:09 | disposition home or self-care (01) | LOC: BICMAMMO 14:08 | PROVIDERS: ATTEND Family Medicine | DX: Z12.31 Encounter for screening mammogram for malignant neoplasm of breast (principal); Z80.3 Family history of malignant neoplasm of breast; Z85.118 Personal history of other malignant neoplasm of bronchus and lung | CPT/HCPCS: 77063; 77067 ==

== ENCOUNTER 2021-12-01 09:40 | Outpatient (CLI) | payer MEDICARE | END 2021-12-01 09:41 | disposition home or self-care (01) | LOC: MRI 09:40 | PROVIDERS: ATTEND Internal Medicine Hematology & Oncology | DX: C34.32 Malignant neoplasm of lower lobe, left bronchus or lung (principal); C79.31 Secondary malignant neoplasm of brain; M80.08XS Age-related osteoporosis with current pathological fracture, vertebra(e), sequela; D80.1 Nonfamilial hypogammaglobulinemia; Z98.890 Other specified postprocedural states | CPT/HCPCS: 70553 ==

== ENCOUNTER 2022-01-05 11:09 | Outpatient (CLI) | payer MEDICARE | END 2022-01-05 11:10 | disposition home or self-care (01) | LOC: BICMRI 11:09 | PROVIDERS: ATTEND Nurse Practitioner Family | DX: M51.14 Intervertebral disc disorders with radiculopathy, thoracic region (principal); M48.04 Spinal stenosis, thoracic region; R60.0 Localized edema; M84.48XA Pathological fracture, other site, initial encounter for fracture; E78.2 Mixed hyperlipidemia; E03.9 Hypothyroidism, unspecified | CPT/HCPCS: 36415; 72146; 80053; 80061; 84439; 84443; 84481 ==

== ENCOUNTER 2022-03-31 11:35 | Emergency (ER) | payer OTHER, MEDICARE ==
[2022-03-31 12:42] LABS: #Basophils 0.1 thou/uL (0.0-0.2); #Eosinphils 0.1 thou/uL (0.0-0.7); #Lymphocytes 3.4 thou/uL (1.20-3.40); #Monocytes 1.2 thou/uL (0.11-0.59); #Neutrophils 5.7 thou/uL (1.40-6.50); %Basophils 0.5 % (0.0-1.0); %Eosinophils 1.3 % (0.0-10.0); %Lymphocytes 32.4 % (21.0-51.0); %Monocytes 11.2 % (0.0-10.0); %Neutrophils 54.5 % (42.0-75.0); Hemoglobin 11.3 g/dL (12.0-16.0); Mean Corpuscular HGB CONC 32.4 g/dL (32.0-36.0); Mean Corpuscular Hemoglobin 32.7 pg (27.0-31.0); Platelet Count 223 thou/uL (130-400); RBC Distribution Width 11.4 % (11.5-14.5); Red Blood Cell (RBC) Count 3.47 mill/uL (4.20-5.40); White Blood Cell (WBC) Count 10.4 thou/uL (4.8-10.8)
[2022-03-31 12:54] LABS: INR-International Normal Ratio 0.9; PTT 25.6 sec (22.9-36.1); Prothrombin Time 12.6 sec (12.0-14.7)
[2022-03-31 13:05] LABS: ALT (SGPT) 15 U/L (8-55); AST (SGOT) 10 U/L (5-34); Albumin 3.8 g/dL (3.4-4.8); Alkaline Phosphatase 74 U/L (40-110); Anion Gap 14 mmol/L (10-20); BUN (Urea Nitrogen) 11 mg/dL (9.8-20.1); Bilirubin, Total 0.9 mg/dL (0.2-1.2); Calc. Creatinine Clearance 0 mL/min (70-130); Calcium 9.8 mg/dL (7.8-10.44); Carbon Dioxide 28 mmol/L (23-31); Chloride 98 mmol/L (98-107); Estimated GFR 46; Glucose 103 mg/dL (83-110); Potassium 4.6 mmol/L (3.5-5.1); Protein, Total 5.8 g/dL (5.8-8.1); Sodium 135 mmol/L (136-145)
[2022-03-31] MEDS ORDERED: Morphine 4 MG/ML VIAL ONE (13:06)
[2022-03-31] MEDS ORDERED: Ondansetron PF 4 MG/2 ML Vial ONE (13:06)
[2022-03-31 14:04] LABS: Bilirubin Negative (Negative); Blood, Urine Trace (Negative); Glucose, Urine (Dipstick) Negative (Negative); Ketone, Urine Negative (Negative); Leukocyte Moderate (Negative); Nitrite Positive (Negative); Protein, Urine (Dipstick) Negative (Neg-Trace); Specific Gravity, Urine 1.015 (1.005-1.030); Urobilinogen 0.2 mg/dL (Less than 2)
[2022-03-31 14:10] LABS: Clarity Hazy (Clear)
[2022-03-31] MEDS ORDERED: Iopamidol-370 76% 500 ML 1 ML ONE (14:10)
[2022-03-31 14:13] LABS: Bacteria/HPF 2+ HPF (None Seen); Other Microscopic Description Less than 2 mL rec'd; RBC/HPF 0-3 HPF (0-3); Renal Epithelial 0-3 HPF (None Seen); Squamous Epithelial 0-3 HPF (0-3); WBC/HPF 21-50 HPF (0-3)
[2022-03-31] MEDS ORDERED: HYDROcodone/Acetaminophen 5/325 mg Tablet ONE (14:57)
== END 2022-03-31 15:51 | disposition home or self-care (01) ==
LOC: ERS 11:35
DX: S22.42XA Multiple fractures of ribs, left side, initial encounter for closed fracture (principal); N39.0 Urinary tract infection, site not specified; E78.5 Hyperlipidemia, unspecified; W01.0XXA Fall on same level from slipping, tripping and stumbling without subsequent striking against object, initial encounter
CPT/HCPCS: 36415; 71260; 74177; 80053; 81003; 81015; 85025; 85610; 85730; 96374; 96375; J2270; J2405; Q9967

== ENCOUNTER 2022-04-14 13:06 | Outpatient (CLI) | payer MEDICARE ==
[~2022-04-14 13:06] MED LIST changes: -Iopamidol 370 76% 100 ML VIAL ONE
== END 2022-04-14 13:07 | disposition home or self-care (01) ==
LOC: SCSMRI 13:06
PROVIDERS: ATTEND Internal Medicine Hematology & Oncology
DX: C34.32 Malignant neoplasm of lower lobe, left bronchus or lung (principal); M80.08XS Age-related osteoporosis with current pathological fracture, vertebra(e), sequela; D80.1 Nonfamilial hypogammaglobulinemia; C79.31 Secondary malignant neoplasm of brain; Z98.890 Other specified postprocedural states
CPT/HCPCS: 70553; A9577

== ENCOUNTER 2022-06-23 19:12 | Emergency (ER) | payer MEDICARE ==
[2022-06-23 19:44] LABS: #Eosinphils 0.2 thou/uL (0.0-0.7); #Lymphocytes 2.6 thou/uL (1.20-3.40); #Monocytes 1.3 thou/uL (0.11-0.59); #Neutrophils 7.4 thou/uL (1.40-6.50); %Basophils 0.1 % (0.0-1.0); %Eosinophils 1.4 % (0.0-10.0); %Lymphocytes 22.9 % (21.0-51.0); %Monocytes 11.1 % (0.0-10.0); %Neutrophils 64.6 % (42.0-75.0); Hemoglobin 10.8 g/dL (12.0-16.0); Mean Corpuscular HGB CONC 33.7 g/dL (32.0-36.0); Mean Corpuscular Hemoglobin 32.2 pg (27.0-31.0); Mean Corpuscular Volume 95.6 fl (78.0-98.0); Mean Platelet Volume 7.1 fL (7.4-10.4); Platelet Count 288 10x3/uL (130-400); RBC Distribution Width 10.9 % (11.5-14.5); Red Blood Cell (RBC) Count 3.35 mill/uL (4.20-5.40); White Blood Cell (WBC) Count 11.4 10x3/uL (4.8-10.8)
[2022-06-23 20:04] LABS: ALT (SGPT) 8 U/L (8-55); AST (SGOT) 16 U/L (5-34); Albumin 3.5 g/dL (3.4-4.8); Alkaline Phosphatase 112 U/L (40-110); Anion Gap 14 mmol/L (10-20); BUN (Urea Nitrogen) 16 mg/dL (9.8-20.1); Bilirubin, Total 0.6 mg/dL (0.2-1.2); Calc. Creatinine Clearance 0 mL/min (70-130); Calcium 9.2 mg/dL (7.8-10.44); Carbon Dioxide 26 mmol/L (23-31); Chloride 99 mmol/L (98-107); Estimated GFR 35; Globulin 1.9 g/dL (2.4-3.5); Glucose 96 mg/dL (83-110); Lipase 45 U/L (8-78); Potassium 3.7 mmol/L (3.5-5.1); Protein, Total 5.4 g/dL (5.8-8.1); Sodium 135 mmol/L (136-145)
[2022-06-23 21:12] LABS: Bacteria/HPF 1+ HPF (None Seen); Bilirubin Negative (Negative); Blood, Urine 2+ (Negative); Clarity Clear (Clear); Glucose, Urine (Dipstick) Normal (Negative); Ketone, Urine Negative (Negative); Leukocyte 250 Leu/uL (Negative); Nitrite 1+ (Negative); Protein, Urine (Dipstick) 30 mg/dL (Neg-Trace); RBC/HPF 0-3 HPF (0-3); Specific Gravity, Urine 1.019 (1.002-1.036); Squamous Epithelial 0-3 HPF (0-3); Urobilinogen Normal mg/dL (Less than 2); WBC/HPF Greater than 50 HPF (0-3)
[2022-06-23] MEDS ORDERED: cefTRIAXone\\ROCEPHIN 1 GM VIAL ONE (21:45)
[2022-06-23] MEDS ORDERED: Lidocaine 1% MPF 2 ML VIAL ONE (21:46)
== END 2022-06-23 21:58 | disposition home or self-care (01) ==
LOC: ERS 19:12
DX: N39.0 Urinary tract infection, site not specified (principal); Z87.891 Personal history of nicotine dependence
CPT/HCPCS: 36415; 80053; 81003; 81015; 83690; 83880; 84484; 85025; 93005; 96372; J0696

== ENCOUNTER 2022-07-16 13:42 | Outpatient (CLI) | payer MEDICARE | END 2022-07-16 13:43 | disposition home or self-care (01) | LOC: BICMAMMO 13:42 | PROVIDERS: ATTEND Family Medicine | DX: Z12.31 Encounter for screening mammogram for malignant neoplasm of breast (principal); Z80.3 Family history of malignant neoplasm of breast; Z85.118 Personal history of other malignant neoplasm of bronchus and lung | CPT/HCPCS: 77063; 77067 ==

== ENCOUNTER 2022-08-20 09:58 | Outpatient (CLI) | payer MEDICARE | END 2022-08-20 09:59 | disposition home or self-care (01) | LOC: SCSMRI 09:58 | PROVIDERS: ATTEND Internal Medicine Hematology & Oncology | DX: C34.12 Malignant neoplasm of upper lobe, left bronchus or lung (principal); C79.31 Secondary malignant neoplasm of brain; Z98.890 Other specified postprocedural states | CPT/HCPCS: 70553 ==

== ENCOUNTER 2022-09-03 16:41 | Inpatient (IN) | payer MEDICARE ==
[2022-09-03 17:42] LABS: #Lymphocytes 2.4 thou/uL (1.20-3.40); #Monocytes 1.4 thou/uL (0.11-0.59); #Neutrophils 6.8 thou/uL (1.40-6.50); %Eosinophils 0.1 % (0.0-10.0); %Lymphocytes 22.7 % (21.0-51.0); %Monocytes 13.5 % (0.0-10.0); %Neutrophils 63.8 % (42.0-75.0); Hemoglobin 11.2 g/dL (12.0-16.0); Mean Corpuscular HGB CONC 33.4 g/dL (32.0-36.0); Mean Corpuscular Volume 95.6 fl (78.0-98.0); Mean Platelet Volume 9.1 fL (7.4-10.4); Platelet Count 172 10x3/uL (130-400); White Blood Cell (WBC) Count 10.6 10x3/uL (4.8-10.8)
[2022-09-03 18:07] LABS: ALT (SGPT) 16 U/L (8-55); AST (SGOT) 12 U/L (5-34); Albumin 3.4 g/dL (3.4-4.8); Alkaline Phosphatase 82 U/L (40-110); Anion Gap 15 mmol/L (10-20); BUN (Urea Nitrogen) 26 mg/dL (9.8-20.1); Bilirubin, Total 0.8 mg/dL (0.2-1.2); CK (CPK) 46 U/L (29-168); Calc. Creatinine Clearance 0 mL/min (70-130); Calcium 8.7 mg/dL (7.8-10.44); Carbon Dioxide 27 mmol/L (23-31); Chloride 96 mmol/L (98-107); Estimated GFR 32; Globulin 2.2 g/dL (2.4-3.5); Glucose 98 mg/dL (83-110); Potassium 3.2 mmol/L (3.5-5.1); Protein, Total 5.6 g/dL (5.8-8.1); Sodium 135 mmol/L (136-145)
[2022-09-03] MEDS ORDERED: cefTRIAXone\\ROCEPHIN 2 GM VIAL ONE (18:52)
[2022-09-03] MEDS ORDERED: Azithromycin 500 MG VIAL ONE (19:35)
[2022-09-03] MEDS ORDERED: Senokot S 8.6-50 MG TAB PO PRN (21:06)
[2022-09-03] MEDS ORDERED: Ondansetron ODT 4 MG TAB PO PRN (21:06)
[2022-09-03] MEDS ORDERED: Acetaminophen 325 MG TAB PO PRN (21:06)
[2022-09-03] MEDS ORDERED: Lactated Ringer's 1,000 ML IV SCH (21:15)
[2022-09-03] MEDS ORDERED: Potassium Chloride 20 MEQ TAB PO SCH (21:15)
[2022-09-03 22:20] VITALS: BMI 26.9
[2022-09-04 07:07] LABS: Mean Corpuscular HGB CONC 33.3 g/dL (32.0-36.0); Mean Corpuscular Hemoglobin 32.4 pg (27.0-31.0); Mean Corpuscular Volume 97.2 fl (78.0-98.0); Mean Platelet Volume 8.9 fL (7.4-10.4); Platelet Count 166 10x3/uL (130-400); RBC Distribution Width 10.9 % (11.5-14.5); Red Blood Cell (RBC) Count 3.09 mill/uL (4.20-5.40); White Blood Cell (WBC) Count 8.6 10x3/uL (4.8-10.8)
[2022-09-04 07:22] LABS: Anion Gap 11 mmol/L (10-20); BUN (Urea Nitrogen) 19 mg/dL (9.8-20.1); Calc. Creatinine Clearance 44 mL/min (70-130); Calcium 7.8 mg/dL (7.8-10.44); Carbon Dioxide 22 mmol/L (23-31); Chloride 104 mmol/L (98-107); Estimated GFR 50; Glucose 90 mg/dL (83-110); Potassium 3.3 mmol/L (3.5-5.1); Sodium 134 mmol/L (136-145)
[2022-09-04] MEDS ORDERED: Potassium Chloride 20 MEQ TAB PO SCH (08:30)
[2022-09-04] MEDS ORDERED: ACALABRUTINIB MALEATE 100 MG PO SCH ×2 (09:00)
[2022-09-04] MEDS ORDERED: Non-Formulary Item 1 EACH (Calcium Carb, Citrate/Vit D3 [Calcium + D3 Er Tablet] 1 TABLET PO SCH (09:00)
[2022-09-04] MEDS ORDERED: MOLNUPIRAVIR 200 MG PO SCH (09:00)
[2022-09-04 09:07] LABS: Band 3 % (5-11); Lymphocytes 17 % (21-51); MDiff Complete? YES; Monocytes 14 % (0-10); Neutrophil 66 % (42-75); Platelet Morphology Comment Appears Adequate; Polychromasia SLIGHT = 2-3 cells (100X) (0-2/hpf)
[2022-09-04] MEDS: Calcium Carbonate 600 MG + Vit D TAB PO SCH (09:14)
[2022-09-04] MEDS: Heparin 5,000 UNITS/ML VIAL SC SCH ×3 (09:14→20:22)
[2022-09-04] MEDS: Levothyroxine Sodium 125 MCG TAB PO SCH (09:15)
[2022-09-04] MEDS: Famotidine 20 MG TAB PO SCH (09:15)
[2022-09-04] MEDS: Escitalopram Oxalate 10 mg Tablet PO SCH (09:15)
[2022-09-04] MEDS: Bupropion 150 MG XL TAB PO SCH (11:07)
[2022-09-04] MEDS: LAGEVRIO PO SCH (20:22)
[2022-09-05 08:32] VITALS: BP 114/72; TEMP 99.3
[2022-09-05] MEDS: Escitalopram Oxalate 10 mg Tablet PO SCH (09:12)
[2022-09-05] MEDS: Bupropion 150 MG XL TAB PO SCH (09:12)
[2022-09-05] MEDS: Famotidine 20 MG TAB PO SCH (09:12)
[2022-09-05] MEDS: Heparin 5,000 UNITS/ML VIAL SC SCH (09:12)
[2022-09-05] MEDS: Levothyroxine Sodium 125 MCG TAB PO SCH (09:12)
[2022-09-05] MEDS: Calcium Carbonate 600 MG + Vit D TAB PO SCH (09:12)
[2022-09-05] MEDS: LAGEVRIO PO SCH (09:21)
[2022-09-05] MEDS ORDERED: Senokot S 8.6-50 MG TAB PO PRN (11:15)
== END 2022-09-05 12:32 | disposition home health service (06) | DRG 178 ==
LOC: ERS 16:41 → T4-A 19:55 → OBSVTOIN 19:56
PROVIDERS: ADMIT Internal Medicine; ATTEND Internal Medicine
PROC: 8E0ZXY6 Isolation (ICD-10-PCS; principal; 2022-09-03)
DX: U07.1 COVID-19 (principal); E87.1 Hypo-osmolality and hyponatremia; N17.9 Acute kidney failure, unspecified; E03.9 Hypothyroidism, unspecified; R63.0 Anorexia; N18.9 Chronic kidney disease, unspecified; Z88.8 Allergy status to other drugs, medicaments and biological substances; Z79.899 Other long term (current) drug therapy; Z79.890 Hormone replacement therapy; Z79.4 Long term (current) use of insulin; Z85.118 Personal history of other malignant neoplasm of bronchus and lung; Z85.841 Personal history of malignant neoplasm of brain; Z85.6 Personal history of leukemia; Z90.710 Acquired absence of both cervix and uterus; Z90.89 Acquired absence of other organs; Z98.890 Other specified postprocedural states; Z68.27 Body mass index [BMI] 27.0-27.9, adult
CPT/HCPCS: 36415; 71045; 80048; 80053; 82550; 83605; 84484; 85025; 87040; 93005; 96365; 96367; J0456; J0696; J1644; J7120

== ENCOUNTER 2022-09-07 19:33 | Inpatient (IN) | payer MEDICARE ==
[~2022-09-07 19:33] MED LIST changes: -Gadobenate Dimeglumine 529 MG/1 ML (20ML VIAL) ONE; +Iopamidol-370 76% 500 ML 1 ML ONE
[2022-09-07 20:22] LABS: #Lymphocytes 0.8 thou/uL (1.20-3.40); #Monocytes 0.7 thou/uL (0.11-0.59); %Basophils 0.1 % (0.0-1.0); %Eosinophils 0.2 % (0.0-10.0); %Monocytes 11.9 % (0.0-10.0); %Neutrophils 73.8 % (42.0-75.0); Hemoglobin 10.3 g/dL (12.0-16.0); Mean Corpuscular Hemoglobin 31.6 pg (27.0-31.0); Mean Corpuscular Volume 95.8 fl (78.0-98.0); Platelet Count 223 10x3/uL (130-400); RBC Distribution Width 11.2 % (11.5-14.5); Red Blood Cell (RBC) Count 3.26 mill/uL (4.20-5.40); White Blood Cell (WBC) Count 5.4 10x3/uL (4.8-10.8)
[2022-09-07 20:54] LABS: ALT (SGPT) 12 U/L (8-55); AST (SGOT) 12 U/L (5-34); Albumin 3.1 g/dL (3.4-4.8); Alkaline Phosphatase 73 U/L (40-110); Anion Gap 16 mmol/L (10-20); BUN (Urea Nitrogen) 19 mg/dL (9.8-20.1); Bilirubin, Total 0.6 mg/dL (0.2-1.2); Calc. Creatinine Clearance 0 mL/min (70-130); Carbon Dioxide 18 mmol/L (23-31); Chloride 103 mmol/L (98-107); Estimated GFR 64; Globulin 1.7 g/dL (2.4-3.5); Glucose 65 mg/dL (83-110); Potassium 2.8 mmol/L (3.5-5.1); Protein, Total 4.8 g/dL (5.8-8.1); Sodium 134 mmol/L (136-145)
[2022-09-07 21:28] LABS: INR-International Normal Ratio 1.2; PTT 27.2 sec (22.9-36.1); Prothrombin Time 15.2 sec (12.0-14.7)
[2022-09-07] MEDS ORDERED: Potassium Chloride 40 MEQ in Premix Bag 1 BAG IVPB SCH (21:45)
[2022-09-07] MEDS ORDERED: Magnesium 2 GM/50 ML BAG (IN WATER) ONE (21:56)
[2022-09-07 22:01] LABS: Magnesium 1.2 mg/dL (1.6-2.6)
[2022-09-07 22:13] LABS: Actual Bicarbonate (HCO3v) 18 mEq/L (22-28); Analyzer IN Cardio ER; Base Excess -5.3 mEq/L (-2.0 to +3.0); Calcium, Ionized (venous) 1.04 mmol/L (1.16-1.32); Chloride (VBG) 102 mmol/L (98-106); Hemoglobin (Hb) 10.9 g/dL (11.7-16.1); Potassium (VBG) 3.01 mmol/L (3.70-5.30); Sodium 131.4 mmol/L (133-146); pH (venous) 7.41 (7.32-7.43)
[2022-09-07] MEDS ORDERED: Acetaminophen 325 MG TAB PO PRN (22:31)
[2022-09-07] MEDS ORDERED: Senokot S 8.6-50 MG TAB PO PRN (22:31)
[2022-09-07] MEDS ORDERED: Magnesium 2 GM/50 ML(in water) 2 GM in Premix Bag 1 BAG IVPB SCH (22:45)
[2022-09-07 22:46] LABS: Lactic Acid 0.7 mmol/L (0.5-2.2)
[2022-09-07] MEDS ORDERED: Potassium Chloride 20 MEQ/100 ML PREMIX BAG ONE (22:57)
[2022-09-07] MEDS: Potassium Chloride 20 MEQ in Premix Bag 1 BAG IVPB SCH (23:21)
[2022-09-07] MEDS: Dextrose 5 %-0.45 % NaCl 1,000 ML IV SCH (23:55)
[2022-09-07] MEDS ORDERED: Cefepime 2 GM in Sodium Chloride 0.9% 100 ML IVPB SCH (23:59)
[2022-09-08] MEDS ORDERED: Vancomycin HCl 750 MG in Sodium Chloride 0.9% 250 ML 250 ML IVPB SCH (02:00)
[2022-09-08 02:12] VITALS: BMI 23.8
[2022-09-08 05:19] LABS: #Lymphocytes 0.9 thou/uL (1.20-3.40); #Monocytes 0.7 thou/uL (0.11-0.59); #Neutrophils 3.3 thou/uL (1.40-6.50); %Basophils 0.2 % (0.0-1.0); %Eosinophils 0.1 % (0.0-10.0); %Lymphocytes 18.2 % (21.0-51.0); %Monocytes 14.3 % (0.0-10.0); %Neutrophils 67.2 % (42.0-75.0); Hemoglobin 10.2 g/dL (12.0-16.0); Mean Corpuscular HGB CONC 34.1 g/dL (32.0-36.0); Mean Corpuscular Hemoglobin 32.8 pg (27.0-31.0); Mean Corpuscular Volume 96.3 fl (78.0-98.0); Mean Platelet Volume 7.8 fL (7.4-10.4); Platelet Count 221 10x3/uL (130-400); RBC Distribution Width 11.5 % (11.5-14.5); Red Blood Cell (RBC) Count 3.11 mill/uL (4.20-5.40); White Blood Cell (WBC) Count 4.9 10x3/uL (4.8-10.8)
[2022-09-08 05:51] LABS: Anion Gap 13 mmol/L (10-20); BUN (Urea Nitrogen) 17 mg/dL (9.8-20.1); Calc. Creatinine Clearance 61 mL/min (70-130); Calcium 7.5 mg/dL (7.8-10.44); Carbon Dioxide 20 mmol/L (23-31); Chloride 103 mmol/L (98-107); Estimated GFR 71; Glucose 92 mg/dL (83-110); Magnesium 1.5 mg/dL (1.6-2.6); Potassium 2.8 mmol/L (3.5-5.1); Sodium 133 mmol/L (136-145)
[2022-09-08] MEDS: Potassium Chloride 20 MEQ in Premix Bag 1 BAG IVPB SCH (05:54)
[2022-09-08] MEDS ORDERED: Electrolyte Replacement Protocol 1 EACH FS SCH (07:15)
[2022-09-08] MEDS ORDERED: Magnesium 2 GM/50 ML(in water) 2 GM in Premix Bag 1 BAG IVPB SCH (07:30)
[2022-09-08] MEDS ORDERED: FLU VACC QS2022-23(65YR UP)/PF 240 MCG/0.7 ML SYRINGE IM ONE (09:00)
[2022-09-08] MEDS: Potassium Chloride 20 MEQ TAB PO SCH ×2 (11:08→14:43)
[2022-09-08] MEDS ORDERED: Potassium Chloride 20 MEQ TAB PO SCH (14:30)
[2022-09-08] MEDS: Dextrose 5 %-0.45 % NaCl 1,000 ML IV SCH (14:44)
[2022-09-08] MEDS: Cefepime 1 GM in Sodium Chloride 0.9% 100 ML IVPB SCH (16:23)
[2022-09-08 17:53] LABS: Potassium 4.1 mmol/L (3.5-5.1)
[2022-09-08] MEDS ORDERED: [UNRECOGNIZED DRUG - OTHER] PO SCH (21:00)
[2022-09-08] MEDS: CALQUENCE 100 MG PO SCH ×2 (21:20→21:26)
[2022-09-09] MEDS: Vancomycin HCl 500 MG in Sodium Chloride 0.9% 100 ML IVPB SCH (02:42)
[2022-09-09] MEDS: Cefepime 1 GM in Sodium Chloride 0.9% 100 ML IVPB SCH ×2 (04:28→21:03)
[2022-09-09] MEDS: Levothyroxine Sodium 100 MCG TAB PO SCH ×2 (05:31→12:10)
[2022-09-09] MEDS: Dextrose 5 %-0.45 % NaCl 1,000 ML IV SCH ×2 (05:33→21:03)
[2022-09-09 07:16] LABS: #Lymphocytes 0.7 thou/uL (1.20-3.40); #Monocytes 0.6 thou/uL (0.11-0.59); #Neutrophils 2.8 thou/uL (1.40-6.50); %Basophils 0.4 % (0.0-1.0); %Eosinophils 0.1 % (0.0-10.0); %Lymphocytes 16.9 % (21.0-51.0); %Monocytes 14.4 % (0.0-10.0); %Neutrophils 68.2 % (42.0-75.0); Hemoglobin 9.6 g/dL (12.0-16.0); Mean Corpuscular HGB CONC 33.6 g/dL (32.0-36.0); Mean Corpuscular Hemoglobin 31.9 pg (27.0-31.0); Mean Corpuscular Volume 94.8 fl (78.0-98.0); Mean Platelet Volume 7.5 fL (7.4-10.4); Platelet Count 206 10x3/uL (130-400); RBC Distribution Width 11.5 % (11.5-14.5); White Blood Cell (WBC) Count 4.2 10x3/uL (4.8-10.8)
[2022-09-09 07:29] LABS: Anion Gap 11 mmol/L (10-20); BUN (Urea Nitrogen) 10 mg/dL (9.8-20.1); Calc. Creatinine Clearance 70 mL/min (70-130); Calcium 7.3 mg/dL (7.8-10.44); Carbon Dioxide 20 mmol/L (23-31); Chloride 102 mmol/L (98-107); Estimated GFR 85; Glucose 106 mg/dL (83-110); Magnesium 1.4 mg/dL (1.6-2.6); Potassium 3.6 mmol/L (3.5-5.1); Sodium 129 mmol/L (136-145)
[2022-09-09] MEDS ORDERED: Electrolyte Replacement Protocol FS PRN (08:00)
[2022-09-09] MEDS ORDERED: Magnesium Sulfate In Water 4 GM in Premix Bag 1 BAG IVPB SCH (08:00)
[2022-09-09] MEDS ORDERED: [UNRECOGNIZED DRUG - OTHER] PO SCH (09:00)
[2022-09-09] MEDS ORDERED: COFFEE PO SCH (09:00)
[2022-09-09] MEDS: Rosuvastatin 20 MG TAB PO SCH (12:08)
[2022-09-09] MEDS: Escitalopram Oxalate 10 mg Tablet PO SCH (12:08)
[2022-09-09] MEDS: Calcium Carbonate 600 MG TAB PO SCH (12:09)
[2022-09-09] MEDS: Cholecalciferol 1,000 UNITS (25 MCG) TAB PO SCH (12:10)
[2022-09-09] MEDS: Bupropion 150 MG XL TAB PO SCH (12:10)
[2022-09-09] MEDS: CALQUENCE 100 MG PO SCH ×2 (12:13→20:49)
[2022-09-09] MEDS: Floranex 1 GM Packet PO SCH (12:13)
[2022-09-10] MEDS: Vancomycin HCl 500 MG in Sodium Chloride 0.9% 100 ML IVPB SCH (01:46)
[2022-09-10 02:02] LABS: Vancomycin, Trough 4.6 ug/mL
[2022-09-10] MEDS: Cefepime 1 GM in Sodium Chloride 0.9% 100 ML IVPB SCH (02:58)
[2022-09-10] MEDS ORDERED: Magnesium 2 GM/50 ML(in water) 2 GM in Premix Bag 1 BAG IVPB SCH (08:00)
[2022-09-10] MEDS: Calcium Carbonate 600 MG TAB PO SCH (11:15)
[2022-09-10] MEDS: Bupropion 150 MG XL TAB PO SCH (11:15)
[2022-09-10] MEDS: Floranex 1 GM Packet PO SCH (11:15)
[2022-09-10] MEDS: Dextrose 5 %-0.45 % NaCl 1,000 ML IV SCH (11:15)
[2022-09-10] MEDS: Cholecalciferol 1,000 UNITS (25 MCG) TAB PO SCH (11:16)
[2022-09-10] MEDS: Rosuvastatin 20 MG TAB PO SCH (11:16)
[2022-09-10] MEDS: CALQUENCE 100 MG PO SCH (11:16)
[2022-09-10] MEDS: Escitalopram Oxalate 10 mg Tablet PO SCH (11:16)
[2022-09-10 11:42] VITALS: BP 130/72
[2022-09-10] MEDS ORDERED: Levothyroxine Sodium 200 MCG VIAL IVP SCH (12:45)
[2022-09-10 13:07] LABS: #Lymphocytes 0.8 thou/uL (1.20-3.40); #Monocytes 0.3 thou/uL (0.11-0.59); #Neutrophils 5.9 thou/uL (1.40-6.50); %Basophils 0.3 % (0.0-1.0); %Eosinophils 0.2 % (0.0-10.0); %Lymphocytes 11.3 % (21.0-51.0); %Monocytes 4.8 % (0.0-10.0); %Neutrophils 83.4 % (42.0-75.0); Hemoglobin 11.1 g/dL (12.0-16.0); Mean Corpuscular HGB CONC 33.8 g/dL (32.0-36.0); Mean Corpuscular Hemoglobin 32.1 pg (27.0-31.0); Mean Corpuscular Volume 94.9 fl (78.0-98.0); Mean Platelet Volume 7.4 fL (7.4-10.4); Platelet Count 235 10x3/uL (130-400); RBC Distribution Width 11.6 % (11.5-14.5); Red Blood Cell (RBC) Count 3.45 mill/uL (4.20-5.40); White Blood Cell (WBC) Count 7.1 10x3/uL (4.8-10.8)
[2022-09-10 13:29] LABS: ALT (SGPT) 11 U/L (8-55); AST (SGOT) 15 U/L (5-34); Albumin 2.8 g/dL (3.4-4.8); Alkaline Phosphatase 69 U/L (40-110); Anion Gap 14 mmol/L (10-20); BUN (Urea Nitrogen) 15 mg/dL (9.8-20.1); Bilirubin, Total 0.4 mg/dL (0.2-1.2); Calc. Creatinine Clearance 71 mL/min (70-130); Calcium 7.8 mg/dL (7.8-10.44); Carbon Dioxide 20 mmol/L (23-31); Chloride 98 mmol/L (98-107); Estimated GFR 86; Globulin 1.9 g/dL (2.4-3.5); Glucose 111 mg/dL (83-110); Potassium 3.5 mmol/L (3.5-5.1); Protein, Total 4.7 g/dL (5.8-8.1); Sodium 128 mmol/L (136-145)
[2022-09-10] MEDS ORDERED: Vancomycin HCl 500 MG in Sodium Chloride 0.9% 100 ML IVPB SCH (14:00)
[2022-09-10] MEDS ORDERED: levETIRAcetam 500 MG/5 ML VIAL SLOW IVP SCH ×4 (14:15→21:00)
[2022-09-10] MEDS ORDERED: Cefepime 2 GM in Sodium Chloride 0.9% 100 ML IVPB SCH ×2 (15:00→16:00)
[2022-09-10] MEDS ORDERED: Midazolam HCl 2 mg/2 ml Vial SLOW IVP PRN (15:50)
[2022-09-10] MEDS ORDERED: Sodium Chloride 0.9% 1,000 ML IV SCH (16:00)
[2022-09-10 16:06] LABS: ALV-art Gradient 122.085 mmHg (0-20); Base Excess (BEa) 2.7 mEq/L (-2.0 to +3.0); CO2 Tension 30.7 mmHg (35.0-45.0); Calcium, Ionized (arterial) 1.07 mmol/L (1.12-1.30); Carboxyhemoglobin (COHb) 0.3 gm% (0.0-3.0); Hemoglobin (Hb) 11.4 g/dL (12.0-16.0); O2 Tension (PaO2), arterial 67.7 mmHg (> 70.0); Potassium - ABG Lab 3.54 mmol/L (3.70-5.30); Puncture Site LRA; pH, Arterial 7.53 (7.35-7.45)
[2022-09-10 16:19] LABS: Bacteria/HPF None Seen HPF (None Seen); Bilirubin Negative (Negative); Blood, Urine 1+ (Negative); Clarity Clear (Clear); Glucose, Urine (Dipstick) 50 mg/dL (Negative); Ketone, Urine Trace mg/dL (Negative); Leukocyte 25 Leu/uL (Negative); Nitrite Negative (Negative); Protein, Urine (Dipstick) 30 mg/dL (Neg-Trace); RBC/HPF 0-3 HPF (0-3); Urobilinogen Normal mg/dL (Less than 2); pH, Urine 5.5 (5.0-9.0)
[2022-09-10 16:29] LABS: INR-International Normal Ratio 1.1; Prothrombin Time 14.4 sec (12.0-14.7)
[2022-09-10 16:30] LABS: PTT 28.4 sec (22.9-36.1)
[2022-09-10 16:34] LABS: Troponin I 0.043 ng/mL (< 0.028)
[2022-09-10 16:47] LABS: ALT (SGPT) 11 U/L (8-55); AST (SGOT) 15 U/L (5-34); Albumin 2.6 g/dL (3.4-4.8); Alkaline Phosphatase 69 U/L (40-110); Anion Gap 15 mmol/L (10-20); BUN (Urea Nitrogen) 14 mg/dL (9.8-20.1); Bilirubin, Total 0.5 mg/dL (0.2-1.2); Calc. Creatinine Clearance 69 mL/min (70-130); Calcium 7.6 mg/dL (7.8-10.44); Carbon Dioxide 16 mmol/L (23-31); Chloride 100 mmol/L (98-107); Estimated GFR 84; Globulin 2.1 g/dL (2.4-3.5); Glucose 103 mg/dL (83-110); Potassium 3.7 mmol/L (3.5-5.1); Protein, Total 4.7 g/dL (5.8-8.1); Sodium 127 mmol/L (136-145)
[2022-09-10 16:53] LABS: Creatinine, Urine 82.53 mg/dL (47-110)
[2022-09-10 17:28] LABS: SARS-CoV-2 NAA Rapid Test DETECTED (NotDetected)
[2022-09-10 18:03] LABS: Magnesium 2.2 mg/dL (1.6-2.6); Phosphorus 2.1 mg/dL (2.3-4.7)
[2022-09-10] MEDS ORDERED: Potassium Chloride 20 MEQ TAB PO SCH (20:00)
[2022-09-10] MEDS ORDERED: levETIRAcetam in NS 1,000 MG in Premix Bag 1 BAG IVPB SCH (21:00)
[2022-09-10 21:38] VITALS: TEMP 98.5
[2022-09-11] MEDS ORDERED: Levothyroxine 100 MCG SDV IVP SCH (06:00)
[2022-09-11] MEDS ORDERED: levETIRAcetam 500 MG/5 ML VIAL SLOW IVP SCH (09:00)
== END 2022-09-10 21:10 | disposition short-term general hospital (02) | DRG 100 ==
LOC: ERS 19:33 → ERHOLD 22:22 → 2NO 09-08 00:35 → OBSVTOIN 09-09 17:42 → CCU 09-10 15:24
PROVIDERS: ADMIT Internal Medicine; ATTEND Internal Medicine
DX: R56.9 Unspecified convulsions (principal); G93.41 Metabolic encephalopathy; J12.82 Pneumonia due to coronavirus disease 2019; C91.10 Chronic lymphocytic leukemia of B-cell type not having achieved remission; E87.1 Hypo-osmolality and hyponatremia; D84.821 Immunodeficiency due to drugs; Z66 Do not resuscitate; R62.7 Adult failure to thrive; G30.9 Alzheimer's disease, unspecified; F02.80 Dementia in other diseases classified elsewhere, unspecified severity, without behavioral disturbance, psychotic disturbance, mood disturbance, and anxiety; E78.5 Hyperlipidemia, unspecified; E87.6 Hypokalemia; I12.9 Hypertensive chronic kidney disease with stage 1 through stage 4 chronic kidney disease, or unspecified chronic kidney disease; E86.0 Dehydration; E83.42 Hypomagnesemia; F32.A Depression, unspecified; N18.9 Chronic kidney disease, unspecified; E03.9 Hypothyroidism, unspecified; Z90.2 Acquired absence of lung [part of]; Z88.8 Allergy status to other drugs, medicaments and biological substances; Z79.899 Other long term (current) drug therapy; Z79.890 Hormone replacement therapy; Z90.710 Acquired absence of both cervix and uterus; Z98.890 Other specified postprocedural states; Z86.16 Personal history of COVID-19; Z85.118 Personal history of other malignant neoplasm of bronchus and lung; Z85.841 Personal history of malignant neoplasm of brain; Z87.891 Personal history of nicotine dependence
CPT/HCPCS: 36415; 36416; 36600; 70450; 71275; 80048; 80053; 80202; 81001; 82533; 82570; 82805; 83605; 83735; 83930; 83935; 84100; 84145; 84146; 84300; 84439; 84443; 84481; 84484; 84550; 85025; 85610; 85730; 86140; 87040; 90471; 90662; 93005; 93010; 95816; 95819; 95957; 96361; 96365; 96367; 96375; 96376; G0008; G0378; J0692; J1953; J3370; J3475; J3480; J3490; J7042; J7050; Q9967; U0002